=== PATIENT | female | born 1990 | race Hispanic/Latino ===

== ENCOUNTER 2017-11-26 17:12 | Inpatient (IN) | payer OTHER, SELFPAY ==
[2017-11-26] MEDS ORDERED: NA CHLORIDE 0.9% 1,000 ML ONE ×2 (18:21→19:28)
[2017-11-26] MEDS ORDERED: ONDANSETRON 4 MG/2 ML VIAL ONE ×2 (18:21→19:28)
[2017-11-26] MEDS ORDERED: FENTANYL CITR 100 MCG/2 ML ONE (18:21)
[2017-11-26 18:23] LABS: Absolute Lymphocytes (CBC) 0.7 K/uL (0.7-4.9); Absolute Monocytes 0.9 K/uL (0.1-1.3); Absolute Neutrophil 11.5 K/uL (1.8-8.0); Basophils % 0.2 % (0-1.3); Hematocrit 38.7 % (36.0-45.0); Lymphocytes % 5.7 % (15.3-44.8); MCH 29.2 pg (27.0-35.0); MCV 85.8 fL (80-100); MPV 8.5 fL (7.6-11.3); Monocytes % 6.6 % (3.3-12.3); RBC Red Blood Cell Count 4.51 M/uL (3.86-4.86)
[2017-11-26 18:40] LABS: Bilirubin Direct 0.6 mg/dL (0-0.2); Bilirubin Total 1.7 mg/dL (0.2-1.0); Potassium 3.7 mmol/L (3.5-5.1); Protein, Total 8.2 g/dL (6.4-8.2)
[2017-11-26 19:10] LABS: Urine Blood 2+ (NEG); Urine Glucose NEGATIVE (NEG); Urine Protein 2+ (NEG); Urine Specific Gravity 1.015 (1.005-1.030)
[2017-11-26] MEDS ORDERED: CEFTRIAXONE/SWI 1gm 1 GM/10 ML SYR ONE ×2 (19:12→19:48)
[2017-11-26 19:19] LABS: Urine Bacteria 20-50 /HPF (<20); Urine Culture Reflex Order REFLEXED
[2017-11-26] MEDS ORDERED: MORPHINE 4 MG/ML SYR ONE (19:28)
[2017-11-26] MEDS ORDERED: KETOROLAC 30 MG/ML INJ ONE (19:48)
--- NOTE | 2017-11-26 20:31 | EDPHYS ---
Physician Documentation [facility] Name: Jesika Gilman Age: 27 yrs Sex: Female : 1990 Arrival Date: 11/26/2017 Time: 17:14 Bed 13 Private MD: IRENA BROWNLEE ED Physician Srinivasa Nuñez HPI: 11/26 18:00 This 27 yrs old Female presents to ER via Ambulatory with complaints of cp Urinary Retention, Diarrhea, Headache. 18:00 The patient complains of pain in the left mid back and right mid back. The pain does cp not radiate. 18:00 Associated signs and symptoms: Pertinent positives: dysuria, fever, nausea, vomiting, cp abdominal pain, diarrhea. 18:00 Severity of pain: in the emergency department the pain is unchanged despite home cp interventions. [employer]: 17:21 LMP 10/29/2017 la1 Historical: - Allergies: 17:21 No Known Allergies; la1 - Home Meds: 17:40 Effexor Oral 150 mg daily [Active]; rb1 - PMHx: 17:21 Anxiety; Kidney stones; la1 - PSHx: 17:21 ; la1 17:21 Tubal ligation; la1 17:40 Tonsillectomy; rb1 - Immunization history:: Adult Immunizations up to date. - Social history:: Smoking status: Patient/guardian denies using tobacco. - Ebola Screening: : No symptoms or risks identified at this time. ROS: 18:05 Constitutional: Negative for fever, poor PO intake. cp 18:05 Eyes: Negative for injury, pain, redness, and discharge. cp 18:05 ENT: Negative for drainage from ear(s), ear pain, sore throat, difficulty swallowing, difficulty handling secretions. 18:05 Cardiovascular: Negative for chest pain, edema, palpitations. 18:05 Respiratory: Negative for cough, shortness of breath, wheezing. 18:05 Back: Positive for flank pain, bilaterally. 18:05 Skin: Negative for cellulitis, rash. 18:05 Neuro: Negative for altered mental status, headache, weakness. 18:05 Abdomen/GI: Positive for abdominal pain, nausea, diarrhea, Negative for vomiting, cp constipation, black/tarry stool, rectal bleeding. 18:05 All other systems are negative. Exam: 18:10 Constitutional: The patient appears in no acute distress, alert, awake, non-toxic, well cp developed, well nourished, in obvious pain, uncomfortable. 18:10 Head/Face: Normocephalic, atraumatic. cp 18:10 Eyes: Periorbital structures: appear normal, Conjunctiva: normal, no exudate, no injection, Sclera: no appreciated abnormality, Lids and lashes: appear normal, bilaterally. 18:10 ENT: External ear(s): are unremarkable, Ear canal(s): are normal, clear, TM's: dullness, bilaterally, Nose: is normal, Mouth: is normal, Posterior pharynx: is normal, airway is patent, no erythema, no exudate. 18:10 Neck: ROM/movement: is normal, is supple, without pain, no range of motions limitations, no meningismus, no nuchal rigidity. 18:10 Chest/axilla: Inspection: normal, Palpation: is normal, no crepitus, no tenderness. 18:10 Cardiovascular: Rate: tachycardic, Rhythm: regular. 18:10 Respiratory: the patient does not display signs of respiratory distress, Respirations: normal, no use of accessory muscles, no retractions, no splinting, no tachypnea, labored breathing, is not present, Breath sounds: are clear throughout, no decreased breath sounds, no stridor, no wheezing. 18:10 Abdomen/GI: Inspection: abdomen appears normal, Bowel sounds: active, all quadrants, Palpation: soft, in all quadrants, moderate abdominal tenderness, in the right lower quadrant and left lower quadrant, rebound tenderness, is not appreciated, voluntary guarding, is elicited in the right lower quadrant and left lower quadrant. 18:10 Back: ROM is painful, with all movement, CVA tenderness, that is severe, is noted on the right. 18:10 Skin: cellulitis, is not appreciated, no rash present. 18:10 Neuro: Orientation: to person, place \T\ time. Mentation: lucid, able to follow commands, Cerebellar function: is grossly normal, Motor: moves all fours, strength is normal, Sensation: is normal. Vital Signs: 17:21 Pulse 142; Resp 20; Temp 99.5(O); Pulse Ox 100% on R/A; Weight 100.24 kg; Height 5 ft. la1 6 in. (167.64 cm); 17:22 BP 110 / 64; la1 18:20 BP 112 / 66; Pulse 111; Resp 16; Pulse Ox 96% on R/A; rb1 19:27 BP 117 / 65; Pulse 101; Resp 20; Pulse Ox 100% on R/A; tl2 19:49 BP 104 / 52 LA Supine (auto/lg); Pulse 103; Resp 20; Temp 98.9(O); Pulse Ox 100% on cc R/A; Pain 7/10; 20:13 BP 96 / 52; Pulse 102; Resp 18; Pulse Ox 100% on R/A; bp 21:33 BP 112 / 67; Pulse 88; Resp 18; Temp 98.5; Pulse Ox 100% on R/A; tl2 17:21 Body Mass Index 35.67 (100.24 kg, 167.64 cm) la1 MDM: 17:38 Patient medically screened. 19:47 Data reviewed: vital signs, nurses notes, lab test result(s). Physician consultation: ron Savage MD was called at 19:47, was contacted at 19:47, regarding admission, to the medical/surgical unit. patient's condition. 11/26 17:53 Order name: Urine Microscopic Only; Complete Time: 19:28 11/26 19:28 Interpretation: Normal except: UWBC TNTC; URBC 10-20; UBACT 20-50; SQEPI 5-10. 11/26 17:53 Order name: Urine Culture 11/26 17:58 Order name: Basic Metabolic Panel; Complete Time: 19:28 11/26 19:28 Interpretation: Normal except: GLUC 123; GFR 67. 11/26 17:58 Order name: CBC with Diff 11/26 19:28 Interpretation: Normal except: WBC 13.1; LUCY% 87.5; LYM% 5.7; NEUT A 11.5. 11/26 17:58 Order name: Creatinine for Radiology; Complete Time: 19:28 11/26 17:58 Order name: Hepatic Function; Complete Time: 19:28 11/26 17:58 Order name: Lipase; Complete Time: 19:28 11/26 17:58 Order name: Urine Microscopic Only 11/26 17:58 Order name: Blood Culture Adult (2) 11/26 17:58 Order name: Lactate; Complete Time: 19:28 cp 11/26 17:58 Order name: Procalcitonin; Complete Time: 19:28 cp 11/26 18:00 Order name: Urine Dipstick--Ancillary (enter results); Complete Time: 19:28 eb 11/26 18:00 Order name: Urine --Ancillary (enter results); Complete Time: 19:28 eb 11/26 20:43 Order name: CBC Smear Scan EDMS 11/26 17:58 Order name: IV Saline Lock; Complete Time: 18:08 cp 11/26 17:58 Order name: Labs collected and sent; Complete Time: 18:08 cp 11/26 17:58 Order name: Urine Test (obtain specimen); Complete Time: 18:08 cp 11/26 17:58 Order name: Urine Dipstick-Ancillary (obtain specimen); Complete Time: 18:08 cp 11/26 17:58 Order name: CT Abd/Pelvis - W/Contrast cp 11/26 19:29 Order name: PO challenge; Complete Time: 20:13 cp Administered Medications: 17:59 CANCELLED (Physician Discretion): TORadol 30 mg IVP once cp 18:15 Drug: NS 0.9% (30 ml/kg) 30 ml/kg Route: IV; Rate: bolus; Site: left antecubital; rb1 18:15 Drug: Zofran 4 mg Route: IVP; Site: left antecubital; rb1 18:30 Follow up: Response: No adverse reaction rb1 18:15 Drug: fentaNYL (PF) 25 mcg Route: IVP; Site: left antecubital; rb1 18:30 Follow up: Response: No adverse reaction; Pain is decreased rb1 18:54 CANCELLED (changed order): Rocephin - (cefTRIAXone) 2 grams IVPB once over 30 mins; rb1 (mix in 100 mL NS) 19:30 Drug: Rocephin 1 grams Route: IV; Rate: calculated rate; Site: left antecubital; tl2 19:32 Follow up: IV Status: Completed infusion tl2 19:32 Drug: NS 0.9% (30 ml/kg) 30 ml/kg Route: IV; Rate: bolus; Site: left antecubital; tl2 22:01 Follow up: IV Status: Completed infusion; IV Intake: 2000ml tl2 19:32 Drug: morphine 2 mg Route: IVP; Site: left antecubital; tl2 19:45 Follow up: Response: No adverse reaction; Pain is unchanged, physician notified tl2 19:32 Drug: Zofran 4 mg Route: IVP; Site: left antecubital; tl2 20:00 Follow up: Response: No adverse reaction; Nausea is decreased tl2 19:49 Drug: TORadol 30 mg Route: IVP; Site: left antecubital; tl2 20:30 Follow up: Response: No adverse reaction; Pain is decreased tl2 19:49 Drug: Rocephin 1 grams Route: IV; Rate: calculated rate; Site: left antecubital; tl2 19:50 Follow up: IV Status: Completed infusion tl2 Disposition: 11/27 12:23 Co-signature as Attending Physician, Srinivasa Nuñez MD I agree with the assessment and christina plan of care. Disposition: 11/26/17 20:31 Hospitalization ordered by Beck Savage for Observation. Preliminary diagnosis is Pyelonephritis. - Bed requested for Telemetry/MedSurg (observation). - Status is Observation. tl2 - Condition is Stable. - Problem is new. - Symptoms have improved. UTI on Admission? Yes Signatures: Dispatcher [employer] EDMS Kendy Morales RN Srinivasa Copeland MD MD cha Attema, Lee RN RN laSrinivasa Beauchamp PA PA cp Barber, Rebecca, RN RN rb1 Brianna Campuzano RN RN tl2 Corrections: (The following items were deleted from the chart) 11/26 17:59 17:58 TORadol 30 mg IVP once ordered. cp cp 18:54 18:25 Rocephin - (cefTRIAXone) 2 grams IVPB once over 30 mins; (mix in 100 mL NS) rb1 ordered. cp 20:50 20:31 Hospitalization Ordered by Beck Savage MD for Observation. Preliminary nasir diagnosis is Pyelonephritis. Bed requested for Telemetry/MedSurg (observation). Status is Observation. Condition is Stable. Problem is new. Symptoms have improved. UTI on Admission? Yes. cp 22:01 20:50 11/26/2017 20:31 Hospitalization Ordered by Beck Savage MD for Observation. tl2 Preliminary diagnosis is Pyelonephritis. Bed requested for Telemetry/MedSurg (observation). Status is Observation. Condition is Stable. Problem is new. Symptoms have improved. UTI on Admission? Yes. kl 11/27 15:11/26 18:05 Abdomen/GI: Positive for abdominal pain, nausea, Negative for vomiting, cp diarrhea, constipation, anorexia, black/tarry stool, rectal bleeding, cp 11/27 15:11/26 18:05 All other systems are negative, cp cp
--- NOTE | 2017-11-26 20:31 | ER ---
Nurse's Notes [facility] Name: Jesika Gilman Age: 27 yrs Sex: Female : 1990 Arrival Date: 11/26/2017 Time: 17:14 Bed 13 Private MD: IRENA BROWNLEE Diagnosis: Pyelonephritis Presentation: 11/26 17:19 Presenting complaint: Patient states: I have been having urinary frequency for 3 days, la1 then I started having blood in my urine, now I have been having vomiting and diarrhea since yesterday. Pt reports fever as well, +CVA tenderness. Transition of care: patient was not received from another setting of care. Onset of symptoms was November 26, 2017. Risk Assessment: Do you want to hurt yourself or someone else? Patient reports no desire to harm self or others. Initial Sepsis Screen: Does the patient meet any 2 criteria? HR > 90 bpm. Does the patient have a suspected source of infection? Yes: Dysuria/Frequency/Urgency/UTI. Care prior to arrival: None. 17:19 Method Of Arrival: Ambulatory la1 17:19 Acuity: DIDIER 3 la1 ASSIGNMENT OFFICER: 17:21 LMP 10/29/2017 la1 Historical: - Allergies: 17:21 No Known Allergies; la1 - Home Meds: 17:40 Effexor Oral 150 mg daily [Active]; rb1 - PMHx: 17:21 Anxiety; Kidney stones; la1 - PSHx: 17:21 ; la1 17:21 Tubal ligation; la1 17:40 Tonsillectomy; rb1 - Immunization history:: Adult Immunizations up to date. - Social history:: Smoking status: Patient/guardian denies using tobacco. - Ebola Screening: : No symptoms or risks identified at this time. Screenin:35 Abuse screen: Denies threats or abuse. Nutritional screening: No deficits noted. rb1 Tuberculosis screening: No symptoms or risk factors identified. Fall Risk None identified. Assessment: 17:35 General: Appears uncomfortable, Behavior is calm, cooperative. Pain: Complains of pain rb1 in left mid back and right mid back Pain radiates to right upper quadrant and left upper quadrant Pain currently is 10 out of 10 on a pain scale. Pain: Pain began 2-3 days ago. Neuro: Level of Consciousness is awake, alert, obeys commands, Oriented to person, place, time, situation. Cardiovascular: Capillary refill < 3 seconds is brisk in bilateral fingers. Respiratory: Airway is patent Respiratory effort is even, unlabored, Respiratory pattern is regular, symmetrical. GI: Reports diarrhea, nausea, vomiting, since x 1 day. : Reports pain with urination. Derm: Skin is dry, Skin is normal, Skin temperature is warm. Musculoskeletal: Range of motion: intact in all extremities. 18:30 Reassessment: Patient appears in no apparent distress at this time. Patient and/or rb1 family updated on plan of care and expected duration. Pain level reassessed. Patient is alert, oriented x 3, equal unlabored respirations, skin warm/dry/pink. 19:28 General: Appears in no apparent distress. uncomfortable, Behavior is cooperative, tl2 appropriate for age, anxious. Pain: Complains of pain in right mid back and left mid back Pain radiates to left upper quadrant and right upper quadrant Pain currently is 8 out of 10 on a pain scale. Neuro: Level of Consciousness is awake, alert, obeys commands, Oriented to person, place, time, situation. Cardiovascular: Denies chest pain. Respiratory: Airway is patent Respiratory effort is even, unlabored, Respiratory pattern is regular, symmetrical. GI: Reports nausea, vomiting. : Reports inability to void. Derm: Skin is pink, warm \T\ dry. 20:30 Reassessment: Patient appears in no apparent distress at this time. Patient and/or tl2 family updated on plan of care and expected duration. Pain level reassessed. Patient is alert, oriented x 3, equal unlabored respirations, skin warm/dry/pink. 21:33 Reassessment: Patient appears in no apparent distress at this time. Patient and/or tl2 family updated on plan of care and expected duration. Pain level reassessed. Patient is alert, oriented x 3, equal unlabored respirations, skin warm/dry/pink. Patient states feeling better. 21:58 Reassessment: Patient appears in no apparent distress at this time. Pt stable and ready tl2 for transport to floor. Vital Signs: 17:21 Pulse 142; Resp 20; Temp 99.5(O); Pulse Ox 100% on R/A; Weight 100.24 kg; Height 5 ft. la1 6 in. (167.64 cm); 17:22 BP 110 / 64; la1 18:20 BP 112 / 66; Pulse 111; Resp 16; Pulse Ox 96% on R/A; rb1 19:27 BP 117 / 65; Pulse 101; Resp 20; Pulse Ox 100% on R/A; tl2 19:49 BP 104 / 52 LA Supine (auto/lg); Pulse 103; Resp 20; Temp 98.9(O); Pulse Ox 100% on cc R/A; Pain 7/10; 20:13 BP 96 / 52; Pulse 102; Resp 18; Pulse Ox 100% on R/A; bp 21:33 BP 112 / 67; Pulse 88; Resp 18; Temp 98.5; Pulse Ox 100% on R/A; tl2 17:21 Body Mass Index 35.67 (100.24 kg, 167.64 cm) la1 ED Course: 17:14 Patient arrived in ED. sb2 17:15 IRENA BROWNLEE is Private Physician. sb2 17:20 Triage completed. la1 17:22 Arm band placed on right wrist. la1 17:35 Patient has correct armband on for positive identification. Bed in low position. Call rb1 light in reach. Side rails up X 1. Pulse ox on. NIBP on. 17:38 Srinivasa Ibarra PA is PHCP. cp 17:38 Srinivasa Nuñez MD is Attending Physician. cp 17:47 Paola Maxwell, RN is Primary Nurse. rb1 18:08 Inserted saline lock: 18 gauge in left antecubital area, using aseptic technique. Blood la1 collected. 18:56 Note: neg upt per marie small sec. jg6 18:57 Second set of blood cultures drawn by ak, by venipuncture 23G to right ac. dh3 19:00 Report given to LUCA Reed. rb1 19:10 CT Abd/Pelvis - W/Contrast In Process Unspecified. EDMS 20:31 Beck Savage MD is Hospitalizing Provider. cp 21:58 No provider procedures requiring assistance completed. Patient admitted, IV remains in tl2 place. Administered Medications: 17:59 CANCELLED (Physician Discretion): TORadol 30 mg IVP once cp 18:15 Drug: NS 0.9% (30 ml/kg) 30 ml/kg Route: IV; Rate: bolus; Site: left antecubital; rb1 18:15 Drug: Zofran 4 mg Route: IVP; Site: left antecubital; rb1 18:30 Follow up: Response: No adverse reaction rb1 18:15 Drug: fentaNYL (PF) 25 mcg Route: IVP; Site: left antecubital; rb1 18:30 Follow up: Response: No adverse reaction; Pain is decreased rb1 18:54 CANCELLED (changed order): Rocephin - (cefTRIAXone) 2 grams IVPB once over 30 mins; rb1 (mix in 100 mL NS) 19:30 Drug: Rocephin 1 grams Route: IV; Rate: calculated rate; Site: left antecubital; tl2 19:32 Follow up: IV Status: Completed infusion tl2 19:32 Drug: NS 0.9% (30 ml/kg) 30 ml/kg Route: IV; Rate: bolus; Site: left antecubital; tl2 22:01 Follow up: IV Status: Completed infusion; IV Intake: 2000ml tl2 19:32 Drug: morphine 2 mg Route: IVP; Site: left antecubital; tl2 19:45 Follow up: Response: No adverse reaction; Pain is unchanged, physician notified tl2 19:32 Drug: Zofran 4 mg Route: IVP; Site: left antecubital; tl2 20:00 Follow up: Response: No adverse reaction; Nausea is decreased tl2 19:49 Drug: TORadol 30 mg Route: IVP; Site: left antecubital; tl2 20:30 Follow up: Response: No adverse reaction; Pain is decreased tl2 19:49 Drug: Rocephin 1 grams Route: IV; Rate: calculated rate; Site: left antecubital; tl2 19:50 Follow up: IV Status: Completed infusion tl2 Intake: 22:01 IV: 2000ml; Total: 2000ml. tl2 Outcome: 20:31 Decision to Hospitalize by Provider. cp 21:58 Admitted to Med/surg accompanied by tech, via stretcher, room 213, with chart, Report tl2 called to LUCA Morin 21:58 Condition: stable 21:58 Discharge instructions given to patient, Instructed on the need for admit. 22:01 Patient left the ED. tl2 Signatures: Dispatcher [employer] EDMS Essie Palafox Lee RN RN la1 Page, GEOVANNA Bernabe cp, Rebecca, RN RN rb1 Justen, LUCA Reed RN tl2 Naomi Escoto 3 Jerry Henderson RN RN Nini Gomez 2 Alida Velazquez6 Corrections: (The following items were deleted from the chart) 19:28 19:03 BP 117 / 65; tl2 tl2
[2017-11-26 20:43] LABS: Blood Morphology Comment NOT SEEN (NOT SEEN); Platelet Estimate ADEQ; Urine White Blood Cell Casts OK
--- NOTE | 2017-11-26 21:22 | P.HP ---
Certification for Inpatient Patient admitted to: Inpatient With expected LOS: >2 Midnights Practitioner: I am a practitioner with admitting privileges, knowledge of patient current condition, hospital course, and medical plan of care. Services: Services provided to patient in accordance with Admission requirements found in Title 42 Section 412.3 of the Code of Federal Regulations Patient History Date of Service: 11/26/17 Reason for admission: Right-sided pyelonephritis, hydronephrosis History of Present Illness: Ms Gilman is a 27-year-old woman with history of obesity, kidney stones, start about 4 days ago with increasing urinary frequency, painful urination, fever maximum of 102.1 F, then she had nausea, vomiting and diarrhea. Today she came to ER for evaluation. She also has had some blood with urination. At arrival her temp was 99.5 F, lab work remarkable for leukocytosis 13.5 K, preliminary report of CT abdomen and pelvis scan shows right pyelonephritis with moderate hydronephrosis. Allergies No Known Drug Allergies Allergy (Unverified 10/16/14 05:13) Unknown No Known Allergies Allergy (Uncoded 06/10/15 10:09) Unknown Home medications list reviewed: Yes - Past Medical/Surgical History -: Kidney stones -: Obesity Past Surgical History: Reviewed- Non-Contributory - Family History Family History: Reviewed- Non-Contributory - Social History Smoking Status: Former smoker Alcohol use: Yes CD- Drugs: No Place of Residence: Home Review of Systems 10-point ROS is otherwise unremarkable Physical Examination - Physical Exam General: Alert, In no apparent distress HEENT: Atraumatic, PERRLA, Mucous membr. moist/pink, EOMI, Sclerae nonicteric Neck: Supple, 2+ carotid pulse no bruit, No LAD, Without JVD or thyroid abnormality Respiratory: Clear to auscultation bilaterally, Normal air movement Cardiovascular: Regular rate/rhythm, Normal S1 S2 Gastrointestinal: Normal bowel sounds, Tenderness (Right flank pain, right CVA pain for at palpation) Musculoskeletal: No tenderness Integumentary: No rashes Neurological: Normal gait, Normal speech, Normal strength at 5/5 x4 extr, Normal tone, Normal affect Lymphatics: No axilla or inguinal lymphadenopathy - Studies Laboratory Data (last 24 hrs) 11/26/17 18:00: Creatinine 1.00 11/26/17 18:00: WBC 13.1 H, Hgb 13.1, Hct 38.7, Plt Count 279 11/26/17 18:00: Sodium 137, Potassium 3.7, BUN 7, Creatinine 1.00, Glucose 123 H , Total Bilirubin 1.7 H, AST 68 H, ALT 80 H, Alkaline Phosphatase 133 H, Lipase 88 Assessment and Plan - Problems (Diagnosis) (1) Acute pyelonephritis Current Visit: Yes Status: Acute (2) Hydronephrosis Current Visit: Yes Status: Acute Qualifiers: Hydronephrosis type: unspecified Qualified Code(s): N13.30 - Unspecified hydronephrosis (3) Nephrolithiasis Current Visit: Yes Status: Acute (4) Obesity Current Visit: Yes Status: Acute Qualifiers: Obesity type: unspecified obesity type Obesity classification: unspecified obesity classification Serious obesity comorbidity presence: unspecified whether serious comorbidity present Qualified Code(s): E66.9 - Obesity, unspecified - Plan Will admit patient to medical floor. Start IV Levaquin, IV fluids, pain medication and symptomatic medication for nausea vomiting. Will consult Dr. Patel for evaluation of her right moderate hydronephrosis. - Advance Directives Does patient have a Living Will: No Does patient have a Durable POA for Healthcare: No - Code Status/Comfort Care Code Status Assessed: Yes Code Status: Full Code
[2017-11-26 22:26] VITALS: BMI 35.5
[2017-11-26] MEDS: NA CHLORIDE 0.9% 1,000 ML IV SCH (22:37)
[2017-11-26] MEDS: Levofloxacin 750mg IV 750 MG/150 ML BAG IV SCH (22:37)
[2017-11-26] MEDS: ONDANSETRON 4 MG/2 ML VIAL IV PRN (22:38)
[2017-11-27] MEDS: KETOROLAC 30 MG/ML INJ IV PRN ×2 (01:44→08:16)
[2017-11-27] MEDS ORDERED: KCL 20 MEQ/100 mL IVPB 20 MEQ/100 ML BAG IV SCH ×2 (02:00→09:00)
[2017-11-27 05:54] LABS: Absolute Monocytes 0.8 K/uL (0.1-1.3); Absolute Neutrophil 9.7 K/uL (1.8-8.0); Basophils % 0.1 % (0-1.3); Hematocrit 34.5 % (36.0-45.0); Lymphocytes % 8.3 % (15.3-44.8); MCH 29.5 pg (27.0-35.0); MCV 86.1 fL (80-100); MPV 8.9 fL (7.6-11.3); Monocytes % 7.2 % (3.3-12.3)
[2017-11-27 05:59] LABS: Potassium 3.9 mmol/L (3.5-5.1)
[2017-11-27] MEDS: ACETAMINOPHEN 500 MG TAB PO PRN ×2 (06:07→18:03)
[2017-11-27] MEDS: NA CHLORIDE 0.9% 1,000 ML IV SCH ×2 (08:18→18:07)
--- NOTE | 2017-11-27 09:55 | RAD REPORT ---
EXAM DESCRIPTION: CT - Abdomen Pelvis W Contrast - 11/26/2017 11:30 pm CLINICAL HISTORY: Abdominal pain with nausea. COMPARISON: none. TECHNIQUE: Computed axial tomography of the abdomen pelvis was obtained. 100 cc Isovue-300 was admin istered intravenously. Oral contrast was not requested which limits evaluation of bowel.Due to hospit al technical malfunction this report could not be dictated yesterday. Preliminary report was given by me to the emergency room after completion of this exam All CT scans are performed using dose optimization technique as appropriate and may include automated exposure control or mA/KV adjustment according to patient size. FINDINGS: Fatty infiltration liver is present. Spleen, pancreas, and adrenals appear unremarkable. Small bilateral nonobstructing renal calculi are seen. 3 centimeter low-density areas present within the right kidney reaching the periphery There is no evidence of diverticulitis. Small umbilical hernias present IMPRESSION: Mild to moderate right pyelonephritis Small nonobstructing renal calculi.
[2017-11-27] MEDS ORDERED: MORPHINE 2 MG/ML SYR IV PRN (10:38)
--- NOTE | 2017-11-27 10:41 | P.PN ---
Subjective Date of Service: 11/27/17 Chief Complaint: Right-sided pyelonephritis, hydronephrosis Patient is still complaining of pain admitted with a right-sided flank pain for the past 4-5 days diagnosis with the right-sided pyelonephritis Review of Systems General: Weakness Gastrointestinal: Nausea Genitourinary: Dysuria, Frequency, Other (Right-sided flank pain) Physical Examination - Vital Signs Temperature: 97.4 F Blood Pressure: 125/58 Pulse: 126 Respirations: 20 Pulse Ox (%): 98 - Physical Exam General: Alert, Oriented x3, Moderate distress Respiratory: Clear to auscultation bilaterally Gastrointestinal: Normal bowel sounds Urinary: Other (Patient has significant right-sided flank and right back) - Studies Laboratory Data (last 24 hrs) 11/26/17 18:00: Creatinine 1.00 11/26/17 18:00: WBC 13.1 H, Hgb 13.1, Hct 38.7, Plt Count 279 11/26/17 18:00: Sodium 137, Potassium 3.7, BUN 7, Creatinine 1.00, Glucose 123 H , Total Bilirubin 1.7 H, AST 68 H, ALT 80 H, Alkaline Phosphatase 133 H, Lipase 88 Assessment & Plan - Problems (Diagnosis) (1) Acute pyelonephritis Current Visit: Yes Status: Acute Plan: Patient is 27 years of age admitted with pyelonephritis continue with antibiotics cultures pending CT scan shows pyelonephritis of ordered morphine and or Vicodin for pain Plan to discharge in: 48 Hours
[2017-11-27] MEDS: HYDROCODONE/APAP 5/325 MG TAB PO PRN ×2 (11:25→16:03)
--- NOTE | 2017-11-27 16:40 | CON ---
Subjective: This is a 27-year-old female, history of obesity, kidney stones. She is normally passing a kidney stone. She passed a kidney stone a few days ago. She saw small bits and pieces of stone came out and the pain persisted. She developed fevers after that, up to a maximum 102.1. She came to the emergency room where it was 99.5. CT scan shows 2 small stones in the right kidney, some hydroureteronephrosis all the way to the bladder. No stones were seen in the ureter; looked like she just passed a stone consistent with her history, and she got an infection after that, so a urine culture is pending. We keep her on IV antibiotics for now until her culture is back today. If she gets any worse, we may have to put a stent in possible due to edema. Allergies: NO KNOWN DRUG ALLERGIES. Past Medical History: Kidney stones, obesity. Past Surgical History: None. Family History: None. Social History: Former smoker. No alcohol use. No drug use. Resides at home. Review of Systems: A 10-point review of systems otherwise unremarkable. Physical Examination: General: She is lying in bed, resting, normally developed female. No acute distress. Vital Signs: 97.4, heart rate 126, respirations 20, blood pressure 125/58, sats 98%. HEENT: Atraumatic, normocephalic. Neck: Supple. Respiratory: Clear. Cardiovascular: S1, S2. Gastrointestinal: Normal bowel sounds; some flank CVA tenderness home. She also has some pain when she takes a deep breath on that side, which is consistent with pyelonephritis. Musculoskeletal: Nontender. Skin: No rashes. Neurological: Normal gait and speech. Lymphatic: No adenopathy. Laboratory Studies: Shows white count down from 13 0.1 to 11.5, H and H 11.8 and 34.5, platelet count 233. Chemistry: Sodium 140, potassium 3.9, chloride 109, carbon dioxide 23, BUN 7, creatinine 0.8, GFR 86, glucose 96, calcium 8.4, low and magnesium 2.0, good. Urine study showed positive nitrite, positive esterase 3+, pH 7.0. Urine culture is pending. She is on Levaquin right now. Assessment: Right pyelonephritis after passing the stone. Continue IV antibiotics. Await for final urine culture and treat her for about 14 days or so for pyelo. Thank you very much. ARLEEN/CORIE Voice ID: [id number] Report ID: [id number] MENDEZ
[2017-11-27] MEDS: ONDANSETRON 4 MG/2 ML VIAL IV PRN (18:04)
[2017-11-27] MEDS: Levofloxacin 750mg IV 750 MG/150 ML BAG IV SCH (23:18)
[2017-11-28] MEDS: ONDANSETRON 4 MG/2 ML VIAL IV PRN (00:17)
[2017-11-28] MEDS: HYDROCODONE/APAP 5/325 MG TAB PO PRN (00:17)
[2017-11-28 01:16] VITALS: O2SAT 98
[2017-11-28 05:08] LABS: BUN Blood Urea Nitrogen 7 mg/dL (7-18); Bicarbonate 25 mmol/L (21-32); Glucose Level 103 mg/dL (74-106); Magnesium 1.9 mg/dL (1.8-2.4); Sodium Level 139 mmol/L (136-145)
[2017-11-28] MEDS: NA CHLORIDE 0.9% 1,000 ML IV SCH (06:00)
[2017-11-28] MEDS: KETOROLAC 30 MG/ML INJ IV PRN (06:00)
[2017-11-28 12:44] VITALS: BP 118/59; TEMP 97.4
--- NOTE | 2017-11-28 13:32 | P.SSS ---
Patient History Date of Service: 11/28/17 Reason for admission: Right-sided pyelonephritis, hydronephrosis History of Present Illness: Ms Gilman is a 27-year-old woman with history of obesity, kidney stones, start about 4 days ago with increasing urinary frequency, painful urination, fever maximum of 102.1 F, then she had nausea, vomiting and diarrhea. Today she came to ER for evaluation. She also has had some blood with urination. At arrival her temp was 99.5 F, lab work remarkable for leukocytosis 13.5 K, preliminary report of CT abdomen and pelvis scan shows right pyelonephritis with moderate hydronephrosis. Allergies morphine Allergy (Mild, Verified 11/27/17 17:40) Itching Home Medications: Venlafaxine HCl [Effexor XR] 150 mg PO DAILY 11/26/17 Levofloxacin [Levaquin] 500 mg PO DAILY #14 tablet 11/28/17 - Past Medical/Surgical History Has patient received pneumonia vaccine in the past: No Diabetic: No -: Kidney stones -: Obesity -: tonsillectomy -: sectionx2 - Family History Family History: Reviewed- Non-Contributory - Family History Father -: Hypertension, Diabetes Mother -: Hypertension, Diabetes - Social History Smoking Status: Former smoker Alcohol use: Yes CD- Drugs: No Caffeine use: Yes Place of Residence: Home Review of Systems 10-point ROS is otherwise unremarkable Physical Examination - Vital Signs Temperature: 97.4 F Blood Pressure: 118/59 Pulse: 83 Respirations: 16 Pulse Ox (%): 100 - Physical Exam General: Alert, In no apparent distress HEENT: Atraumatic, PERRLA, Mucous membr. moist/pink, EOMI, Sclerae nonicteric Neck: Supple, 2+ carotid pulse no bruit, No LAD, Without JVD or thyroid abnormality Respiratory: Clear to auscultation bilaterally, Normal air movement Cardiovascular: Regular rate/rhythm, Normal S1 S2 Gastrointestinal: Normal bowel sounds, No tenderness Musculoskeletal: No tenderness Integumentary: No rashes Neurological: Normal gait, Normal speech, Normal strength at 5/5 x4 extr, Normal tone, Normal affect Lymphatics: No axilla or inguinal lymphadenopathy - Studies Microbiology Data (last 24 hrs): 11/26/17 17:55 Clean Catch Urine Irwin Count - Final >100,000 CFU/ML. 11/26/17 17:55 Clean Catch Urine - Final Escherichia Coli - Diagnosis (Problem(s)) (1) Acute pyelonephritis Onset Date: 11/28/17 Status: Acute (2) Nephrolithiasis Onset Date: 11/28/17 Status: Acute (3) Obesity Onset Date: 11/28/17 Status: Acute Qualifiers: Obesity type: unspecified obesity type Obesity classification: unspecified obesity classification Serious obesity comorbidity presence: unspecified whether serious comorbidity present Qualified Code(s): E66.9 - Obesity, unspecified Treatment Summary: Overall during the hospital stay patient remained stable Patient was initially admitted to the hospital for fever chills and right flank pain. Was found to have pyelonephritis. Patient was started on IV antibiotics here in the hospital. Neurology was consulted who recommend abdominal CT, abdominal CT was done which was consistent with small nonobstructing calculi along with acute pyelonephritis. Patient was switched over to p.o. Levaquin once the sensitivity for urinalysis were back patient's urine culture was positive for E. coli. Patient had marked improvement in her symptoms and per urology recommendation patient then was discharged home under stable condition. Patient was asked to follow up with urology in about 1-2 days post discharge and was asked to continue taking p.o. Levaquin for total of 14 days. Patient demonstrated understanding and thus was discharged home under stable condition - Disposition Disposition: ROUTINE DISCHARGE Condition: GOOD Patient Discharge Instructions: Please f.u with PCP 1 to 2 weeks post discharge. New medication. Levaquin 500mg Daily for 14 days Diet: Regular Activity: Ad ijeoma
== END 2017-11-28 13:00 | disposition home or self-care (01) | DRG 690 ==
LOC: ER 17:12 → OBSVTOIN 20:29 → ERHOLD 20:29 → 2ND 21:33
PROVIDERS: ADMIT Internal Medicine; ATTEND Internal Medicine
DX: N10 Acute pyelonephritis (principal); B96.20 Unspecified Escherichia coli [E. coli] as the cause of diseases classified elsewhere; N13.2 Hydronephrosis with renal and ureteral calculous obstruction; E66.9 Obesity, unspecified; Z68.35 Body mass index [BMI] 35.0-35.9, adult
CPT/HCPCS: 36415; 74177; 80048; 80076; 81003; 81015; 81025; 83605; 83690; 83735; 84145; 85025; 87040; 87077; 87086; 87088; 87186; 96365; 96366; 96375; 99285; J0696; J2405; J3010; J7030; Q9967

== ENCOUNTER 2018-12-29 13:18 | Emergency (ER) | payer SELFPAY ==
--- NOTE | 2018-12-29 14:28 | EDPHYS ---
Physician Documentation [facility] Name: Jesika Gilman Age: 28 yrs Sex: Female : 1990 Arrival Date: 12/29/2018 Time: 13:19 Bed 20 Private MD: None, None ED Physician Conrado Arteaga HPI: 12/29 13:59 This 28 yrs old Female presents to ER via Ambulatory with complaints of jmm WITHDRAWAL. 14:19 Onset: The symptoms/episode began/occurred gradually, 2 day(s) ago. This is a 28 year jmm old female with a history of anxiety that presents to the ED with complaints of worsening anxiety over the past 2 days. Patient has not taken effexor in 6 days. Symptoms worsened 2 days ago. PCP called in low dose for the patient. . Historical: - Allergies: 13:28 Morphine; sv - PMHx: 13:28 Anxiety; Kidney stones; sv - PSHx: 13:28 ; Tubal ligation; Tonsillectomy; sv - Immunization history:: Adult Immunizations up to date. - Social history:: Smoking status: Patient/guardian denies using tobacco. - Ebola Screening: : Patient negative for fever greater than or equal to 101.5 degrees Fahrenheit, and additional compatible Ebola Virus Disease symptoms Patient denies exposure to infectious person Patient denies travel to an Ebola-affected area in the 21 days before illness onset No symptoms or risks identified at this time. ROS: 14:19 Constitutional: Negative for fever, chills, and weight loss, Cardiovascular: Negative jmm for chest pain, palpitations, and edema, Respiratory: Negative for shortness of breath, cough, wheezing, and pleuritic chest pain. 14:19 Psych: Positive for anxiety. 14:19 All other systems are negative. Exam: 14:19 Head/Face: atraumatic. Eyes: EOMI, no conjunctival erythema appreciated ENT: Moist jmm Mucus Membranes Neck: Trachea midline, Supple Chest/axilla: Normal chest wall appearance and motion. Cardiovascular: Regular rate and rhythm. No edema appreciated Respiratory: Normal respirations, no respiratory distress appreciated Abdomen/GI: Non distended, soft Back: Normal ROM Skin: General appearance color normal MS/ Extremity: Moves all extremities, no obvious deformities appreciated, no edema noted to the lower extremities Neuro: Awake and alert, normal gait Psych: Behavior is normal, Mood is normal, Patient is cooperative and pleasant 14:19 Constitutional: The patient appears alert, awake, anxious. Vital Signs: 13:28 BP 126 / 91; Pulse 113; Resp 22; Temp 99.3; Pulse Ox 99% ; Weight 115.67 kg; Height 5 sv ft. 6 in. (167.64 cm); 14:12 BP 119 / 86; Pulse 90; Resp 18; Pulse Ox 99% on R/A; Pain 0/10; em 13:28 Body Mass Index 41.16 (115.67 kg, 167.64 cm) sv MDM: 13:59 Patient medically screened. [facility] 14:09 Medical screen evaluation completed. EMTALA emergency medical condition absent. [facility] 14:19 Data reviewed: vital signs, nurses notes. ED course: Patient advised to take prescribed jmm Effexor as directed and follow up with PCP. Patient was otherwise given strict return precautions. Patient understood and agrees with the plan of care. . Administered Medications: No medications were administered Disposition: 14:09 Encounter for Medication Refill. [facility] 15:10 Co-signature as Attending Physician, Conrado Arteaga MD I agree with the assessment and kdr plan of care. Disposition: 12/29/18 14:27 Discharged to Home as Medical Screen. Impression: Medication Refill. - Condition is Stable. - Medication Reconciliation Form, Thank You Letter, Antibiotic Education, Prescription Opioid Use form. - Follow up: Private Physician; When: 2 - 3 days; Reason: Recheck today's complaints, Continuance of care, Re-evaluation by your physician. Signatures: Naya Barr RN RN sv Rittger, Kevin, MD MD kdr Mickail, Joel, PA PA [facility] Broderick Tyler LVN WIRE BORDER ASSEMBLER em Corrections: (The following items were deleted from the chart) 14:31 14:27 12/29/2018 14:27 Discharged to Home as Medical Screen. Impression: Medication em Refill. Condition is Stable. Forms are Medication Reconciliation Form, Thank You Letter, Antibiotic Education, Prescription Opioid Use. Follow up: Private Physician; When: 2 - 3 days; Reason: Recheck today's complaints, Continuance of care, Re-evaluation by your physician. [facility]
--- NOTE | 2018-12-29 14:28 | ER ---
Nurse's Notes [facility] Name: Jesika Gilman Age: 28 yrs Sex: Female : 1990 Arrival Date: 12/29/2018 Time: 13:19 Bed 20 Private MD: None, None Diagnosis: Medication Refill Presentation: 12/29 13:27 Presenting complaint: Patient states: Pt has been out of her Effexor for about 6 days, sv was able to get an appt for Jan 05 but they only wrote her for 37.5 mg in the meantime, pt reports normally taking 150 mg. Reports feeling crying and "shocking feeling". Transition of care: patient was not received from another setting of care. Onset of symptoms was December 2018. Risk Assessment: Do you want to hurt yourself or someone else? Patient reports no desire to harm self or others. Initial Sepsis Screen: Does the patient meet any 2 criteria? No. Patient's initial sepsis screen is negative. Does the patient have a suspected source of infection? No. Patient's initial sepsis screen is negative. Care prior to arrival: None. 13:27 Method Of Arrival: Ambulatory sv 13:27 Acuity: DIDIER 3 sv Historical: - Allergies: 13:28 Morphine; sv - PMHx: 13:28 Anxiety; Kidney stones; sv - PSHx: 13:28 ; Tubal ligation; Tonsillectomy; sv - Immunization history:: Adult Immunizations up to date. - Social history:: Smoking status: Patient/guardian denies using tobacco. - Ebola Screening: : Patient negative for fever greater than or equal to 101.5 degrees Fahrenheit, and additional compatible Ebola Virus Disease symptoms Patient denies exposure to infectious person Patient denies travel to an Ebola-affected area in the 21 days before illness onset No symptoms or risks identified at this time. Screenin:02 Abuse screen: Denies threats or abuse. Nutritional screening: No deficits noted. em Tuberculosis screening: No symptoms or risk factors identified. Fall Risk None identified. Assessment: 14:00 General: Appears in no apparent distress. uncomfortable, Behavior is crying. Pain: em Denies pain. Neuro: Level of Consciousness is awake, alert, obeys commands, Oriented to person, place, time, situation, Appropriate for age. Cardiovascular: Capillary refill < 3 seconds Patient's skin is warm and dry. Respiratory: Airway is patent Respiratory effort is even, unlabored, Respiratory pattern is regular, symmetrical. Derm: Skin is intact, is healthy with good turgor, Skin is pink, warm \\T\\ dry. Musculoskeletal: Capillary refill < 3 seconds, Range of motion: intact in all extremities. 14:32 Reassessment: I agree with above assessment. Vital Signs: 13:28 BP 126 / 91; Pulse 113; Resp 22; Temp 99.3; Pulse Ox 99% ; Weight 115.67 kg; Height 5 sv ft. 6 in. (167.64 cm); 14:12 BP 119 / 86; Pulse 90; Resp 18; Pulse Ox 99% on R/A; Pain 0/10; em 13:28 Body Mass Index 41.16 (115.67 kg, 167.64 cm) sv ED Course: 13:19 Patient arrived in ED. ag5 13:21 None, None is Private Physician. ag5 13:28 Triage completed. sv 13:29 Arm band placed on. sv 13:32 Malu Eller, RN is Primary Nurse. iw 13:37 Alan Sullivan PA is PHCP. [facility] 13:37 Conrado Arteaga MD is Attending Physician. [facility] 14:02 Patient has correct armband on for positive identification. Bed in low position. Call em light in reach. Pulse ox on. NIBP on. 14:30 No provider procedures requiring assistance completed. Patient did not have IV access em during this emergency room visit. Administered Medications: No medications were administered Outcome: 14:27 Discharge ordered by . [facility] 14:30 Following a medical screening exam, the patient was provided information regarding em alternative care sites and resources available per registration personnel. 14:30 Medical screen evaluation completed per provider. Patient declined treatment. em 14:31 Condition: good em 14:31 Patient left the ED. em Signatures: Lavern Blancas, RN LUCA Naya Barr RN RN sv Mickail, Joel, PA PA Broderick Boo, LEAD BI DEVELOPER LEAD BI DEVELOPER em Malu Eller, RN LUCA Randal Donaldson ag5 Corrections: (The following items were deleted from the chart) 14:31 14:30 Following a medical screening exam, the patient was provided information em regarding alternative care sites and resources available per registration personnel. em
[2018-12-29 14:47] VITALS: BP 119/86; O2SAT 99
== END 2018-12-29 14:31 | disposition home or self-care (01) ==
LOC: ER 13:18
DX: Z76.0 Encounter for issue of repeat prescription (principal); Z88.5 Allergy status to narcotic agent
CPT/HCPCS: 99282

== ENCOUNTER 2024-10-20 10:44 | Emergency (ER) | payer SELFPAY ==
--- OUTSIDE RECORDS SUMMARY | 2024-10-20 10:49 | XMS REPORT | Continuity of Care Document ---
Author Name Unknown Address [address] [facility] [address] [place] [address] [facility] Address [address] [facility] [address] [place] [address] Care Team Providers Care Slabber Name Role Phone Sharla Prakash MD Primary Care Physician [phone] KEL BAILEY Attending Clinician Unavai JOSÉ Rothman Attending Clinician Unavailab le Doctor Unassigned, [place] Attending Clinician U Domenic Ghosh DO Attending Clinician [phone] Kel Bailey MD Attending Clinician + [phone] Rose Heaton Attending Clinician [phone] Linden Ordaz DO Attending Clinician [phone] Caesar TALLEY, Arsenio Attending Clinician [phone] Sindi Talley RN Attending Clinician [phone] Doctor Unassigned, [place] Attending Clinician U ajayidalia Sheikh PAC, Tere S Attending Clinician ANDREA GORMAN III Attending Clinician KEL Vazquez Admitting Clinician JOSÉ Pemberton Admitting Clinician Unavail le KNOW, DOES_NOT Admitting Clinician Unavailable Caesar TALLEY, Faisaljessica Admitting Clinician [phone] ANDREA GORMAN III Admitting Clinician Mart kaye Payers Payer Name Policy Type Policy Number Effective Date Expirati on Date Source MEDICAID PENDING PENDING 2019 00:00:00 Problems Condition Name Condition Details Condition Category Status Onset Date Resolution Date Last Treatment Date Treating Clinician Comments Source Urinary tract infection, site not specified Urinary tract infection, site not specified Disease Active 12-02 00:00: 00 [facility] Kidney stone Kidney stone Disease Active 11-15 00:00: 00 Overview: Added automatic ally from request for surgery [id number] [facility] Kidney stones Kidney stones Disease Active 11-13 00:00: 00 [facility] delivery delivered delivery delivered Disease Active 2016-03 00:00: 00 [facility] delivery delivered delivery delivered Disease Active 2016-03 00:00: 00 [facility] 39 weeks gestation of 39 weeks gestation of Disease Active 2016-03 00:00: 00 [facility] Oligohydra mnios in third trimester Oligohydra mnios in third trimester Disease Active 2016-03 00:00: 00 [facility] Morbid obesity with body mass index of 40.0-49.9 Morbid obesity with body mass index of 40.0-49.9 Disease Active 2016-03 00:00: 00 [facility] heart rate decelerati ons affecting management of mother heart rate decelerati ons affecting management of mother Disease Active 2016-03 00:00: 00 [facility] Morbid obesity with body mass index of 40.0-49.9 Morbid obesity with body mass index of 40.0-49.9 Disease Active 2016-03 00:00: 00 [facility] uterine contractio ns in third trimester, antepartum uterine contractio ns in third trimester, antepartum Disease Active 2016-03 0 00:00: 00 [facility] Obesity (BMI 30-39.9) Obesity (BMI 30-39.9) Disease Active 09-29 00:00: 00 [facility] Renal calculi Renal calculi Disease Active 09-29 00:00: 00 [facility] Seizure disorder in , third trimester Seizure disorder in , third trimester Disease Active 09-08 00:00: 00 [facility] Hypertensi on in , pre-existi ng, antepartum , second trimester Hypertensi on in , pre-existi ng, antepartum , second trimester Disease Active 09-08 00:00: 00 [facility] Depression affecting in third trimester, antepartum Depression affecting in third trimester, antepartum Disease Active 09-08 00:00: 00 [facility] Headache in , antepartum , third trimester Headache in , antepartum , third trimester Disease Active 09-08 00:00: 00 [facility] Family history of Down syndrome Family history of Down syndrome Disease Active 09-08 00:00: 00 [facility] Chlamydia infection affecting Chlamydia infection affecting Disease Active 09-08 00:00: 00 [facility] Family history of Down syndrome Family history of Down syndrome Disease Active 09-08 00:00: 00 [facility] Generalize d anxiety disorder Generalize d anxiety disorder Disease Active 05-12 00:00: 00 Overview: Denies suicidal ideations [facility] with nephrolith iasis in second trimester with nephrolith iasis in second trimester Disease Resolve d 09-30 00:00: 00 2017-01-03 00:00:00 2017-01-03 08:58:07 [facility] 36 weeks gestation of 36 weeks gestation of Disease Resolve d 09-29 00:00: 00 2017-01-03 00:00:00 2017-01-03 08:57:24 [facility] Leukocytos is Leukocytos is Disease Resolve d 09-29 00:00: 00 2017-01-03 00:00:00 2017-01-03 08:57:53 [facility] HRP (high risk ) , third trimester HRP (high risk ) , third trimester Disease Resolve d 09-08 00:00: 2017-01-03 00:00:00 2017-01-03 08:57:46 [facility] Obesity complicati ng , second trimester Obesity complicati ng , second trimester Disease Resolve d 09-08 00:00: 00 2017-01-03 00:00:00 2017-01-03 08:58:00 [facility] Anxiety during in second trimester, antepartum Anxiety during in second trimester, antepartum Disease Resolve d 09-08 00:00: 00 2017-01-03 00:00:00 2017-01-03 08:57:29 [facility] Encounter for routine gynecologi ben examinatio n Encounter for routine gynecologi ben examinatio n Disease Resolve d 05-12 00:00: 2017-01-03 00:00:00 2021-09-20 00:23:18 [facility] Pain pelvic Pain pelvic Disease Resolve d 05-12 00:00: 00 2017-01-03 00:00:00 2017-01-03 08:57:16 [facility] Dyspareuni a Dyspareuni a Disease Resolve d 05-12 00:00: 00 2017-01-03 00:00:00 2017-01-03 08:57:14 [facility] Dysmenorrh ea Dysmenorrh ea Disease Resolve d 05-12 00:00: 00 2017-01-03 00:00:00 2017-01-03 08:57:14 [facility] Pyelonephr itis affecting Pyelonephr itis affecting Disease Resolve d 09-30 00:00: 00 2016-09-30 00:00:00 2016-09-30 18:51:00 [facility] Threatened premature labor, antepartum (644.03) Threatened premature labor, antepartum (644.03) Disease Resolve d 2009-03 0-20 00:00: 00 2012-05-12 00:00:00 2012-05-12 12:02:43 [facility] Allergies, Adverse Reactions, Alerts Allergy Name Allergy Type Status Severity Reaction(s) Onset Date Inactive Date Treating Clinician Comments Source MORPHINE DRUG INGREDI Active ITCHING 11-13 00:00: 00 [facility] Morphine Propensi ty to adverse reaction s Active Itching 11-13 00:00: 00 [facility] No Known Allergie s DA Active U 11-06 00:00: 00 [facility] NO KNOWN ALLERGIE S Drug Class Active [facility] Social History Social Habit Start Date Stop Date Quantity Comments Source [facility] smoked current (pack per day) - Reported 2019-12-05 00:00:00 2019-12-05 00:00:00 [facility] Alcohol intake 2019-12-05 00:00:00 2019-12-05 00:00:00 Current non-drinker of alcohol (finding) [facility] History SDOH Financial 2019-12-04 00:00:00 2019-12-04 00:00:[address] [facility] History SDOH Food Worry 2019-12-04 00:00:00 2019-12-04 00:00:[address] [facility] History SDOH Food Scarcity 2019-12-04 00:00:00 2019-12-04 00:00:[address] [facility] History SDOH Transport Med 2019-12-04 00:00:00 2019-12-04 00:00:[address] [facility] History SDOH Transport Non-Med 2019-12-04 00:00:00 2019-12-04 00:00:[address] [facility] Exposure to SARS-CoV-2 (event) 2019-11-03 00:00:00 2019-12-03 18:34:[address] [facility] Tobacco Comment 2019-12-03 00:00:00 2019-12-03 00:00:[address] [facility] History of Social function 2019-11-23 00:00:00 2019-11-23 00:00:00 [facility] Alcoholic beverage intake 2017-01-03 00:00:00 2017-01-03 00:00:00 Current non-drinker of alcohol (finding) [facility] Tobacco use and exposure 2012-05-12 00:00:00 2012-05-12 00:00:00 Smokeless tobacco non-user [facility] Alcohol Comment 2012-05-12 00:00:00 2012-05-12 00:00:00 gave up 03/08/2012 [facility] History of tobacco use 2012-04-07 00:00:[address] [facility] Sex assigned at 1990 00:00:00 1990 00:00:00 [facility] Smoking Status Start Date Stop Date Source Ex-smoker 2012-05-12 00:00:00 2012-05-12 00:00:00 [facility] Medications Ordered Medication Name Filled Medication Name Start Date Stop Date Current Medication? Ordering Clinician Indication Dosage Frequency Signature (SIG) Comments Components Source clonazePAM 2 mg tablet 12-04 17:48: 27 12-04 00:00 :00 No 2mg Take 2 mg by mouth 3 (three) times daily. [facility] acetaminoph en (TYLENOL) tablet 650 mg 12-04 06:34: 55 Yes 650mg 650 mg, Oral, Q6HPRN, Starting Tue12/05/19 at 0134, Until Discontinu ed, Routine, Pain (scale 1-3), Temp > 38.5 C [facility] FENTanyl PF (SUBLIMAZE (PF)) injection 50 mcg 12-04 03:43: 46 12-05 03:42 :46 No 50ug 50 mcg, Slow IV Push, Q3HPRN, Starting Tu12/04/19 at 2243, Until Tue12/05/19 at 2242, Routine, Pain (scale 7-10) [facility] cefTRIAXone (ROCEPHIN) 1,000 mg in NaCl 0.9% (NS) 50 mL MINI-BAG 12-04 01:00: 00 Yes 1000mg 1,000 mg, IV Piggyback, Q24H ABX, First dose (after last reorder) on Tue12/04/19 at 2000, Until Discontinu ed, 50 mL
Reas on for Anti-Infec tive: Documented Infection< br>Documen shandra Infection Site: Urine
D uration of Therapy: 7 days [facility] amoxicillin -clavulanat e (AUGMENTIN) 875-125 mg per tablet 12-04 00:00: 00 Yes [id number] 1{tbl} Take 1 tablet by mouth 2 (two) times daily. [facility] acetaminoph en 325 mg tablet 12-04 00:00: 00 12-05 04:59 :00 No [id number] 650mg Take 2 tablets by mouth every 6 (six) hours as needed for Pain (scale 1-3) or Temp > 38.5 C. [facility] FENTanyl PF (SUBLIMAZE (PF)) injection 25 mcg 12-03 19:15: 25 12-03 20:08 :26 No 25ug 25 mcg, Slow IV Push, Q5MIN PRN, 4 doses, Starting Tue12/04/19 at 1415, Until Tue12/04/19 at 1508, Routine, Pain (scale 4-6), PACU [facility] pantoprazol e (PROTONIX) EC tablet 40 mg 12-03 14:00: 00 Yes 40mg 40 mg, Oral, DAILY, First dose on Tue12/04/19 at 0900, Until Discontinu ed, Routine [facility] docusate (COLACE) capsule 100 mg 12-03 14:00: 00 Yes 100mg 100 mg, Oral, DAILY, First dose on Tue12/04/19 at 0900, Until Discontinu ed, Routine [facility] venlafaxine XR (EFFEXOR XR) 24 hr capsule 150 mg 12-03 13:00: 00 Yes 150mg 150 mg, Oral, QAM WITH BREAKFAST, First dose on Tue12/04/19 at 0800, Until Discontinu ed, Routine [facility] clonazePAM (KLONOPIN) tablet 0.5 mg 12-03 03:13: 04 Yes .5mg 0.5 mg, Oral, Q8HPRN, Starting Tue12/03/19 at 2213, Until Discontinu ed, Routine, Anxiety [facility] NaCl 0.9% (NS) IV infusion 1,000 mL 12-03 02:15: 00 Yes 1000mL at 50 mL/hr, IV Infusion, CONTINUOUS , Starting Tue12/03/19 at 2115, Until Discontinu ed, Routine [facility] cefTRIAXone (ROCEPHIN) 1,000 mg in NaCl 0.9% (NS) 50 mL MINI-BAG 12-03 01:45: 00 12-03 02:15 :00 No 1000mg 1,000 mg, IV Piggyback, ONCE, 1 dose, Tue12/03/19 at 2045, 50 mL
Reas on for Anti-Infec tive: Documented Infection< br>Documen shandra Infection Site: Urine
D uration of Therapy: Other (see Comments) [facility] ondansetron (ZOFRAN (PF)) injection 4 mg 12-03 01:09: 08 Yes 4mg 4 mg, Slow IV Push, Q6HPRN, Starting Tue12/03/19 at 2008, Until Discontinu ed, Routine, Nausea and Vomiting (N/V) [facility] FENTanyl PF (SUBLIMAZE (PF)) injection 50 mcg 12-03 01:06: 33 12-04 01:05 :33 No 50ug 50 mcg, Slow IV Push, Q3HPRN, Starting Tue12/03/19 at 2005, Until Tue12/04/19 at 2005, Routine, Pain (scale 7-10) [facility] ketorolac (TORADOL) injection 15 mg 12-03 01:00: 00 12-03 00:31 :00 No 15mg 15 mg, Intramuscu lar, ONCE, 1 dose, Tue12/03/19 at 2000, PEGGY
Fa culty member approving Restricted medication : LINDEN ORDAZ [facility] HYDROmorpho ne (DILAUDID) injection 1 mg 12-03 01:00: 00 12-03 00:31 :00 No 1mg 1 mg, Slow IV Push, ONCE, 1 dose, Tue12/03/19 at 2000, PEGGY
Us e approved by (Faculty): CLC PROVIDER [facility] ondansetron (ZOFRAN (PF)) injection 4 mg 12-03 01:00: 00 12-03 00:31 :00 No 4mg 4 mg, Slow IV Push, ONCE, 1 dose, Tue12/03/19 at 2000, PEGGY [facility] tamsulosin 0.4 mg 24 hr capsule 12-03 00:00: 00 Yes [id number] .4mg Take 1 capsule by mouth daily. [facility] NaCl 0.9% (NS) bolus infusion 1,000 mL 12-03 00:00: 00 12-03 00:31 :00 No 1000mL at 999 mL/hr, 1,000 mL, IV Infusion, ONCE, 1 dose, Tue12/03/19 at 1900, PEGGY [facility] ketorolac (TORADOL) injection 30 mg 11-15 16:30: 00 11-15 15:43 :00 No 30mg 30 mg, Slow IV Push, ONCE, 1 dose, Tue11/16/19 at 1130, Routine
catering staff member approving Restricted medication : BURT SHETTY [facility] FENTanyl PF (SUBLIMAZE (PF)) injection 50 mcg 11-15 05:30: 00 11-15 05:38 :00 No 50ug 50 mcg, Slow IV Push, ONCE, 1 dose, Tue11/16/19 at 0030, Routine [facility] ketorolac (TORADOL) injection 15 mg 11-15 01:57: 57 11-15 05:02 :52 No 15mg 15 mg, Slow IV Push, Q6HPRN, 4 doses, Starting Nicole 11/15/19 at 2057, Until Tue11/16/19 at 0002, Routine, Alternate with [place] for pain scale 4-6
Fac ulty member approving Restricted medication : HOSREDCLC [facility] HYDROcodone -acetaminop hen (NORCO 5) 5-325 mg tablet 1 tablet 11-15 00:27: 26 Yes 1{tbl} 1 tablet, Oral, Q6HPRN, Starting Nicole 11/15/19 at 1927, Until Discontinu ed, Routine, Pain (scale 4-6) [facility] traMADoL (ULTRAM) 50 mg tablet 11-15 00:00: 00 Yes [id number] 50mg Take 1 tablet by mouth every 8 (eight) hours as needed for Pain (scale 4-6). Indication s: acute pain [facility] tamsulosin 0.4 mg 24 hr capsule 11-15 00:00: 00 12-04 00:00 :00 No [id number] .4mg Take 1 capsule by mouth at bedtime. [facility] ciprofloxac in HCl 500 mg tablet 11-15 00:00: 00 12-04 00:00 :00 No [id number] 500mg Take 1 tablet by mouth every 12 (twelve) hours. [facility] cefTRIAXone (ROCEPHIN) 1,000 mg in NaCl 0.9% (NS) 50 mL MINI-BAG 11-14 15:30: 00 Yes 1000mg 1,000 mg, IV Piggyback, Q24H ABX, First dose on Tue11/15/19 at 1030, Until Discontinu ed, 50 mL
Reas on for Anti-Infec tive: Empiric Therapy for Suspected Infection< br>Empiric Therapy Site: Urine
D uration of therapy: 72 hours [facility] enoxaparin (LOVENOX) injection 40 mg 11-14 14:00: 00 Yes 40mg 40 mg, Subcutaneo us, DAILY, First dose on Nicole 11/15/19 at 0900, Until Discontinu ed, Routine [facility] venlafaxine XR (EFFEXOR XR) 24 hr capsule 150 mg 11-14 13:00: 00 Yes 150mg 150 mg, Oral, QAM WITH BREAKFAST, First dose on Tue11/15/19 at 0800, Until Discontinu ed, Routine [facility] NaCl 0.9% (NS) IV infusion 1,000 mL 11-14 03:00: 00 Yes 1000mL at 100 mL/hr, IV Infusion, CONTINUOUS , Starting Tue11/14/19 at 2200, Until Discontinu ed, Routine [facility] tamsulosin (FLOMAX) capsule 0.4 mg 11-14 02:00: 00 Yes .4mg 0.4 mg, Oral, QHS, First dose on Tue11/14/19 at 2100, Until Discontinu ed, Routine [facility] FENTanyl PF (SUBLIMAZE (PF)) injection 50 mcg 11-14 01:38: 16 11-14 20:46 :36 No 50ug 50 mcg, Slow IV Push, Q3HPRN, Starting Tue11/14/19 at 2037, Until Tue11/15/19 at 1546, Routine, Pain (scale 7-10) [facility] HYDROcodone -acetaminop hen (NORCO 5) 5-325 mg tablet 1 tablet 11-14 01:38: 12 11-14 20:46 :36 No 1{tbl} 1 tablet, Oral, Q6HPRN, Starting Tue11/14/19 at 2037, Until Nicole 11/15/19 at 1546, Routine, Pain (scale 4-6) [facility] acetaminoph en (TYLENOL) tablet 650 mg 11-14 01:38: 10 Yes 650mg 650 mg, Oral, Q6HPRN, Starting Tue11/14/19 at 203, Until Discontinu ed, Routine, Pain (scale 1-3) [facility] ondansetron (ZOFRAN-ODT ) disintegrat ing tablet 4 mg 11-14 01:36: 49 11-14 20:46 :12 No 4mg 4 mg, Oral, Q8HPRN, Starting Tue11/14/19 at 2035, Until Nicole 11/15/19 at 1546, Routine, Nausea and Vomiting (N/V) [facility] venlafaxine XR (EFFEXOR XR) 24 hr capsule 150 mg 09-12 14:00: 00 Yes 150mg 150 mg, Oral, DAILY, First dose on Tue09/13/19 at 0900, Until Discontinu ed, Routine [facility] LORazepam (ATIVAN) tablet 1 mg 09-12 09:15: 00 09-12 08:32 :00 No 1mg 1 mg, Oral, ONCE, 1 dose, [facility] 09/13/19 at 0415, PEGGY [facility] venlafaxine XR 150 mg 24 hr capsule 09-12 00:00: 00 12-04 00:00 :00 No [id number] 150mg Take 1 capsule by mouth daily with breakfast. [facility] ondansetron (ZOFRAN ODT) 4 mg disintegrat ing tablet 2018-03 00:00: 00 11-22 00:00 :00 No [id number] 4mg Take 1 tablet by mouth every 8 (eight) hours as needed for Nausea and Vomiting (N/V). [facility] traMADol (ULTRAM) 50 mg tablet 2018-03 00:00: 00 11-15 00:00 :00 No [id number] 50mg Take 1 tablet by mouth every 8 (eight) hours as needed for Pain (scale 4-6). [facility] tamsulosin 0.4 mg 24 hr capsule 2018-03 00:00: 00 11-15 00:00 :00 No [id number] .4mg Take 1 capsule by mouth at bedtime. [facility] venlafaxine XR 150 mg 24 hr capsule 2016-03 00:00: 00 Yes [id number] 150mg Take 1 capsule by mouth daily with breakfast. [facility] Immunizations Ordered Immunization Name Filled Immunization Name Date Status Comments Source MMR 2017-01-08 00:00:[address] [facility] Influenza Virus Vaccine Quad ID 18-64 YRS 2017-01-08 00:00:[address] [facility] MMR 2017-01-08 00:00:[address] [facility] Influenza Virus Vaccine Quad ID 18-64 YRS 2017-01-08 00:00:[address] [facility] MMR 2017-01-08 00:00:[address] [facility] Influenza Virus Vaccine Quad ID 18-64 YRS 2017-01-08 00:00:[address] [facility] MMR 2017-01-08 00:00:[address] [facility] Influenza Virus Vaccine Quad ID 18-64 YRS 2017-01-08 00:00:[address] [facility] MMR 2017-01-08 00:00:[address] [facility] Influenza Virus Vaccine Quad ID 18-64 YRS 2017-01-08 00:00:[address] [facility] MMR 2017-01-08 00:00:[address] [facility] Influenza Virus Vaccine Quad ID 18-64 YRS 2017-01-08 00:00:[address] [facility] MMR 2017-01-08 00:00:[address] [facility] Influenza Virus Vaccine Quad ID 18-64 YRS 2017-01-08 00:00:[address] [facility] MMR 2017-01-08 00:00:[address] [facility] Influenza Virus Vaccine Quad ID 18-64 YRS 2017-01-08 00:00:[address] [facility] MMR 2017-01-08 00:00:[address] [facility] Influenza Virus Vaccine Quad ID 18-64 YRS 2017-01-08 00:00:[address] [facility] MMR 2017-01-08 00:00:[address] [facility] Influenza Virus Vaccine Quad ID 18-64 YRS 2017-01-08 00:00:[address] [facility] MMR 2017-01-08 00:00:[address] [facility] Influenza Virus Vaccine Quad ID 18-64 YRS 2017-01-08 00:00:[address] [facility] MMR 2017-01-08 00:00:[address] [facility] Influenza Virus Vaccine Quad ID 18-64 YRS 2017-01-08 00:00:[address] [facility] MMR 2017-01-08 00:00:[address] [facility] Influenza Virus Vaccine Quad ID 18-64 YRS 2017-01-08 00:00:[address] [facility] MMR 2017-01-08 00:00:[address] [facility] Influenza Virus Vaccine Quad ID 18-64 YRS 2017-01-08 00:00:[address] [facility] MMR 2017-01-08 00:00:[address] [facility] Influenza Virus Vaccine Quad ID 18-64 YRS 2017-01-08 00:00:[address] [facility] MMR 2017-01-08 00:00:[address] [facility] Influenza Virus Vaccine Quad ID 18-64 YRS 2017-01-08 00:00:[address] [facility] MMR 2017-01-08 00:00:[address] [facility] Influenza Virus Vaccine Quad ID 18-64 YRS 2017-01-08 00:00:[address] [facility] MMR 2017-01-08 00:00:[address] [facility] Influenza Virus Vaccine Quad ID 18-64 YRS 2017-01-08 00:00:[address] [facility] TDAP 2016-10-28 00:00:[address] [facility] TDAP 2016-10-28 00:00:[address] [facility] TDAP 2016-10-28 00:00:[address] [facility] TDAP 2016-10-28 00:00:[address] [facility] TDAP 2016-10-28 00:00:[address] [facility] TDAP 2016-10-28 00:00:[address] [facility] TDAP 2016-10-28 00:00:[address] [facility] TDAP 2016-10-28 00:00:[address] [facility] TDAP 2016-10-28 00:00:[address] [facility] TDAP 2016-10-28 00:00:[address] [facility] TDAP 2016-10-28 00:00:[address] [facility] TDAP 2016-10-28 00:00:[address] [facility] TDAP 2016-10-28 00:00:[address] [facility] TDAP 2016-10-28 00:00:[address] [facility] TDAP 2016-10-28 00:00:[address] [facility] TDAP 2016-10-28 00:00:[address] [facility] TDAP 2016-10-28 00:00:[address] [facility] TDAP 2016-10-28 00:00:[address] [facility] TDAP 2016-10-28 00:00:[address] [facility] Td 2011-04-08 00:00:[address] [facility] Td 2011-04-08 00:00:[address] [facility] Td 2011-04-08 00:00:[address] [facility] Td 2011-04-08 00:00:[address] [facility] Td 2011-04-08 00:00:[address] [facility] Td 2011-04-08 00:00:[address] [facility] Td 2011-04-08 00:00:[address] [facility] Td 2011-04-08 00:00:[address] [facility] Td 2011-04-08 00:00:[address] [facility] Td 2011-04-08 00:00:[address] [facility] Td 2011-04-08 00:00:[address] [facility] Td 2011-04-08 00:00:[address] [facility] Td 2011-04-08 00:00:[address] [facility] Td 2011-04-08 00:00:[address] [facility] Td 2011-04-08 00:00:[address] [facility] Td 2011-04-08 00:00:[address] [facility] TD, NOS 2011-04-08 00:00:00 Completed Td 2011-04-08 00:00:[address] [facility] Td 2011-04-08 00:00:[address] [facility] Vital Signs Vital Name Observation Time Observation Value Comments S ource Systolic blood pressure 2019-12-05 19:37:00 110 mm[Hg] [place] [facility] Diastolic blood pressure 2019-12-05 19:37:00 82 mm[Hg] [facility] Heart rate 2019-12-05 19:37:00 79 /min Kathye [facility] Body temperature 2019-12-05 19:37:[address] [facility] Respiratory rate 2019-12-05 19:37:00 18 /min [facility] Oxygen saturation in Arterial blood by Pulse oximetry 2019-12-05 19:37:00 98 /min [facility] Body weight 2019-12-04 12:41:00 91.6 [facility] BMI 2019-12-04 12:41:00 32.61 kg/m2 [facility] Body height 2019-12-04 02:47:00 167.6 cm [facility] Systolic blood pressure 2019-11-23 14:42:00 119 mm[Hg] [facility] Diastolic blood pressure 2019-11-23 14:42:00 76 mm[Hg] [facility] Heart rate 2019-11-23 14:42:00 81 /min [facility] Body temperature 2019-11-23 14:42:[address] [facility] Respiratory rate 2019-11-23 14:42:00 16 /min [facility] Body height 2019-11-23 14:42:00 167.6 cm [facility] Body weight 2019-11-23 14:42:00 92.851 kg [facility] BMI 2019-11-23 14:42:00 33.04 kg/m2 [facility] Oxygen saturation in Arterial blood by Pulse oximetry 2019-11-23 14:42:00 98 /min [facility] Systolic blood pressure 2019-11-23 14:42:00 119 mm[Hg] [facility] Diastolic blood pressure 2019-11-23 14:42:00 76 mm[Hg] [facility] Heart rate 2019-11-23 14:42:00 81 /[facility] temperature 2019-11-23 14:42:[address] [facility] Respiratory rate 2019-11-23 14:42:00 16 /min [facility] Body height 2019-11-23 14:42:00 167.6 cm [facility] Body weight 2019-11-23 14:42:00 92.851 kg [facility] BMI 2019-11-23 14:42:00 33.04 kg/m2 [facility] Oxygen saturation in Arterial blood by Pulse oximetry 2019-11-23 14:42:00 98 /min [facility] Systolic blood pressure 2019-11-16 20:00:00 121 mm[Hg] [facility] Diastolic blood pressure 2019-11-16 20:00:00 62 mm[Hg] [facility] Heart rate 2019-11-16 20:00:00 66 /min Unive [facility] Body temperature 2019-11-16 20:00:[address] [facility] Respiratory rate 2019-11-16 20:00:00 18 /min [facility] Oxygen saturation in Arterial blood by Pulse oximetry 2019-11-16 20:00:00 99 /min [facility] Body weight 2019-11-15 15:07:00 95.3 kg [facility] BMI 2019-11-15 15:07:00 33.91 kg/m2 [facility] Body height 2019-11-14 23:16:00 167.6 cm [facility] Systolic blood pressure 2019-09-13 08:00:00 104 mm[Hg] [facility] Diastolic blood pressure 2019-09-13 08:00:00 63 mm[Hg] [facility] Heart rate 2019-09-13 08:00:00 95 /min Unive [facility] Respiratory rate 2019-09-13 08:00:00 19 /min [facility] Oxygen saturation in Arterial blood by Pulse oximetry 2019-09-13 08:00:00 99 /min [facility] Body weight 2019-09-13 07:49:29 98.431 kg [facility] BMI 2019-09-13 07:49:29 35.04 kg/m2 [facility] Body temperature 2019-09-13 07:40:[address] [facility] Procedures Procedure Date / Time Performed Performing Clinician Source XR KUB 2019-12-05 10:22:[address] [facility] FL TIME OR (NON-REPORTABLE) 2019-12-04 18:59:[address] [facility] URETEROSCOPIC STONE MANIPULATION 2019-12-04 17:50:[address] [facility] US RETROPERITONEAL COMPLETE 2019-12-04 01:27:[address] [facility] COVID-19 (ID NOW RAPID TESTING) 2019-12-04 00:44:00 [facility] POCT TEST 2019-12-04 00:38:[address] [facility] HEPATIC FUNCTION PANEL (26485) (ALB,T.PRO,BILI T,BU/BC,ALT,AST,ALK PHOS) 2019-12-04 00:00:00 [facility] BASIC METABOLIC PANEL (NA, K, CL, CO2, GLUCOSE, BUN, CREATININE, CA) 2019-12-04 00:00:00 [facility] CBC WITH DIFF 2019-12-04 00:00:00 Linden Ordaz [facility] URINALYSIS 2019-12-04 00:00:00 Linden Ordza [facility] URINE CULTURE 2019-12-04 00:00:00 Linden Ordaz [facility] NO SHOW OR MISSED APPOINTMENT POLICY ACKNOWLEDGEMENT 2019-11-23 14:26:19 Doctor Unassigned, [place] [facility] EXTERNAL PROVIDER RECORDS 2019-11-20 05:01:00 Do ctor Unassigned, [place] [facility] FL TIME OR (NON-REPORTABLE) 2019-11-15 21:40:[address] [facility] STENT PLACEMENT 2019-11-15 20:42:[address] [facility] TEST, URINE 2019-11-15 19:01:[address] [facility] URINE CULTURE 2019-11-15 16:02:[address] [facility] BASIC METABOLIC PANEL (NA, K, CL, CO2, GLUCOSE, BUN, CREATININE, CA) 2019-11-15 15:56:[address] [facility] CBC WITH DIFF 2019-11-15 15:56:00 Janett Catalan [facility] BLOOD CULTURE SCREEN 2019-11-15 15:49:00 [facility] COVID-19 (ID NOW RAPID TESTING) 2019-11-14 23:17:[address] [facility] EKG-12 LEAD 2019-09-13 08:06:25 Tere Sheikh [facility] ASSIGNMENT OF BENEFITS 2019-09-13 07:16:54 Docto r Unassigned, [place] [facility] CONSENT/REFUSAL FOR DIAGNOSIS AND TREATMENT 2019-09-13 07:16:41 Doctor Unassigned, [place] [facility] US PELVIS > 14 WEEKS 2017-01-04 20:34:[address] [facility] Encounters Start Date/Time End Date/Time Encounter Type Admission Type Attending Clinicians Care Facility Care Department Encounter ID Source 2021-01-02 19:53:37 Emergency [facility] [id number] [facility] 2021-01-02 17:59:45 Outpatient KEL BAILEY [facility] [id number] [facility] 2021-01-02 16:43:08 Inpatient U JOSÉ SERVIN [facility] [id number] [facility] 2021-01-02 05:40:25 Emergency [facility] [id number] [facility] 2019-12-03 15:44:00 Inpatient HCACL EZRA [id number] [facility] 2017-01-04 00:00:00 2024-04-21 03:34:49 Orders Only Doctor Unassigned, [place] Doctor Unassigned, [place] [facility] .840.114 350.1.13.10 4.2.7.2.686 [id number] [facility] 2020-05-27 00:00:00 2020-05-27 00:00:00 Patient Outreach Domenic Prakash [facility] .840.114 350.1.13.10 4.2.7.2.686 [id number] [facility] 2020-01-10 00:00:00 2020-01-10 00:00:00 Telephone Kel Bailey [facility] Medical Office Building 1.2.840.114 350.1.13.10 4.2.7.2.686 [id number] [facility] 2019-12-11 00:00:00 2019-12-11 00:00:00 Telephone Kel Bailey [facility] Office Building 1.2.840.114 350.1.13.10 4.2.7.2.686 [id number] [facility] 2019-12-06 00:00:00 2019-12-06 00:00:00 Transition of Care Heaton Rose Jeff Cloud 1.2.840.114 350.1.13.10 4.2.7.2.686 [id number] [facility] 2019-12-03 18:38:00 2019-12-05 15:55:00 Hospital En[facility] 1.2.840.114 350.1.13.10 4.2.7.2.686 [id number] [facility] 2019-12-03 00:00:00 2019-12-03 00:00:00 Telephone Kel Bailey [facility] Office Building 1.2.840.114 350.1.13.10 4.2.7.2.686 [id number] 2019-12-03 00:00:00 2019-12-03 00:00:00 Telephone Kel Bailey [facility] 1.2.840.114 350.1.13.10 4.2.7.2.686 [id number] [facility] 2019-11-28 00:00:00 2019-11-28 00:00:00 Patient Outreach Mayank Sindi Robertssammy Cloud 1.2.840.114 350.1.13.10 4.2.7.2.686 [id number] 2019-11-28 00:00:00 2019-11-28 00:00:00 Patient Outreach Sindi Talley 1.2.840.114 350.1.13.10 4.2.7.2.686 [id number] [facility] 2019-11-23 09:27:40 2019-11-23 09:57:40 Office Visit Leo [facility] Office Building 1.2.840.114 350.1.13.10 4.2.7.2.686 [id number] 2019-11-23 09:27:40 2019-11-23 09:57:40 Office Visit Leo [facility] Office Building 1.2.840.114 350.1.13.10 4.2.7.2.686 [id number] [facility] 2019-11-23 09:30:00 2019-11-23 09:30:00 Outpatient R [facility] [id number] [facility] 2019-11-23 00:00:00 2019-11-23 00:00:00 Orders Only Doctor Unassigned, [place] [facility] 1.2.840.114 350.1.13.10 4.2.7.2.686 [id number] [facility] 2019-11-23 00:00:00 2019-11-23 00:00:00 Telephone Leo [facility] Medical Office Building 1.2840.114 350.1.13.10 4.2.7.2.686 [id number] [facility] 2019-11-23 00:00:00 2019-11-23 00:00:00 Telephone Leo [facility] Office Building 1.2.840.114 350.1.13.10 4.2.7.2.686 [id number] [facility] 2019-11-23 00:00:00 2019-11-23 00:00:00 Telephone Kel Bailey [facility] Office Building 1.2.840.114 350.1.13.10 4.2.7.2.686 [id number] 2019-11-23 00:00:00 2019-11-23 00:00:00 Telephone Kel Bailey [facility] Office Building 1.2.840.114 350.1.13.10 4.2.7.2.686 [id number] 2019-11-20 00:00:00 2019-11-20 00:00:00 Orders Only Doctor Unassigned, [place] [facility] 1.2.840.114 350.1.13.10 4.2.7.2.686 [id number] [id number] [facility] 2019-11-19 00:00:00 2019-11-19 00:00:00 Transition of Care Rose Heaton 1.2.840.114 350.1.13.10 4.2.7.2.686 [id number] [facility] 2019-11-19 00:00:00 2019-11-19 00:00:00 Transition of Care Rose Heaton 1.2.840.114 350.1.13.10 4.2.7.2.686 [id number] [facility] 2019-11-14 18:22:00 2019-11-16 15:31:00 Hospital Encounter José Servin [facility] ([facility]) 1.2.840.114 350.1.13.10 4.2.7.2.686 [id number] [facility] 2019-11-16 00:00:00 2019-11-16 00:00:00 Prep For Surgery Kel Bailey [facility] Office Building 1.2.840.114 350.1.13.10 4.2.7.2.686 [id number] [facility] 2019-09-13 02:36:56 2019-09-13 04:01:00 Emergency Tere Sheikh [facility] 1.2.840.114 350.1.13.10 4.2.7.2.686 [id number] [facility] 2019-09-13 00:00:00 2019-09-13 00:00:00 Orders Only Doctor Unassigned, [place] [facility] 1.2.840.114 350.1.13.10 4.2.7.2.686 [id number] [facility] 2019-02-16 17:01:30 2019-02-16 18:52:00 Emergency X ANDREA GORMAN III [facility] ERT [id number] [facility] Results Test Description Test Time Test Comments Results Resul t Comments Source XR KUB 2019-12-05 13:46:30 EXAM: XR KUB HISTORY: ureteral stent COMPARISON: None. FINDINGS: A ureteral stent connects the left renal pelvis with the urinary bladder.The bowel gas pattern is normal and no opaque stones or masses are found. ? [facility], Radiant Results Inft User - 12/05/2019 8:47 AM CDTEXAM: XR KUBHISTORY: ureteral stent COMPARISON: None.FINDINGS: A ureteral stent connects the left renal pelvis with the urinary bladder.The bowel gas pattern is normal and no opaque stones or masses are found. [facility] ([facility]2019-12-04 19:00:05 These images do not require a Radiology diagnostic report.[facility] RET[facility]AL [id number] 01:47:26Impression: No acute abnormalities evident. RL: 460 End of Report Ordering Physician: ?TIANNA ELISE History: ?Hematuria. History ofkidney stones. Technique: Retroperitoneal ultrasound Comparison: None. Correlation is made with a CT of the abdomen and pelvisperformed November 24, 2019. Findings: ? The right kidney measures 12.3 x 4.8 x 4.9 cm and the right kidney 11.5 x5.5 x 5.8 cm. There is no hydronephrosis. The small left intrarenalcalculus seen on the prior CT is not visible sonographically. Renalcortical echogenicity iswithin normal limits. The urinary bladder isdecompressed and not well evaluated. [facility], Radiant Results Inft User - 12/03/2019 8:48 PM CDTOrdering Physician: TIANNA JURADOOHistory: Hematuria. History of kidney stones.Technique: Retroperitoneal ultrasoundComparison: None. Correlation is made with aCT of the abdomen and pelvisperformed November 24, 2019.Findings: The right kidney measures 12.3 x4.8 x 4.9 cm and the right kidney 11.5 x5.5 x 5.8 cm. There is no hydronephrosis. The small left intrarenalcalculus seen on the prior CT is not visible sonographically. Renalcortical echogenicity is within normal limits. The urinary bladder isdecompressed and not well evaluated.IMPRESSIONImpression:No acute abnormalities evident.RL: 460End of Report [facility]ownCOVID-19 (ID NOW RAPID TESTING)2019-12-04 01:14:00* Test Item Value Reference Range Interpretation Comme nts SARS-CoV-2 Rapid ID NOW (test code = 45882-2) Not Detected Not Detected MARK ANTHONY (test code = MARK ANTHONY) ID NOW COVID-19 As say is an isothermal nucleic acid amplification test intended for the qualitative detection of nucleic acid from SARS-CoV-2 viral RNA in nasopharyngeal (BOAT PULLER) specimens. It is used under Emergency Use Authorization (EUA) by FDA. The limit of detection (LOD) of the assay is 125 Genome Equivalents/mL. A positive result is indicative of the presence of SARS-CoV-2 RNA. ?Clinical correlation with patient history and other diagnostic information is necessary to determine patient infection status. A negative (Not Detected) result does not preclude SARS-CoV-2 infection. In patients with clinical symptoms and other tests that are consistent with SARS-CoV-2 infection, negative results should be treated as presumptive negative and a new specimen should be tested with alternative PCR molecular test. Invalid: Please collect a new specimen for repeat patient testing if clinically indicated. Lab Interpretation (test code = 21035-7) Normal [facility] [id number] 00:38:00* Test Item Value Reference Range Interpretation Comme nts POCT PREG (test code = 1605) negative On board controls acceptable with C Line (test code = 3574) negatvie POCT PREG LOT # (test code = 3575) [id number] POCT PREG TEST DATE ( test code = 3576) 01/04/2021 Lab Interpretation (test cod e = 77160-6) Normal [facility] CenterUrinalysis2020-09-29 00:31:00* Test Item Value Reference Range Interpretation Comme nts APPEARANCE (test code = 8962708133) Hazy Clear A COLOR (test code = 7128146944) Red Yellow A PH (test code = 8042797113) 4.8-8.0 SP GRAVITY (test code = 0488242527) 1.003-1.030 GLU U QUAL (test code = 8050496986) Normal Normal BLOOD (test code = 1059844630) 3+ Negative A KETONES (test code = 8348634276) Negative Negative PROTEIN (test code = 2887-8) 100 mg/dL Negative A UROBILIN (test code = 7690858104) Normal Normal BILIRUBIN (test code = 0568542356) Negative Negative NITRITE (test code = 2114814517) Negative Negative LEUK UMANG (test code = 8287845912) 75/uL Negative A RBC/HPF (test code = 5169047324) >182 See_Comment H [Automated messa ge] The system which generated this result transmitted reference range: 0 - 3 HPF. The reference range was not used to interpret this result as normal/abnormal. WBC/HPF (test code = 2492461677) See_Comment H [Automated [employer] ge] The system which generated this result transmitted reference range: 0 - 5 HPF. The reference range was not used to interpret this result as normal/abnormal. BACTERIA (test code = 5597926865) Negative Negative MUCOUS (test code = 5209308210) Moderate Negative LPF A SQ EPITH (test code = 9142759838) See_Comment [Automated messa ge] The system which generated this result transmitted reference range: <=2 HPF. The reference range was not used to interpret this result as normal/abnormal. Lab Interpretation (test code = 62096-8) Abnormal [facility] (ALB, T.PRO, BILI T, BU/BC, ALT, AST, ALK PHOS)2019-12-04 00:19:00* Test Item Value Reference Range Interpretation Comme nts TOTAL BILI (test code = 8562177370) 0.6 mg/dL 0.1-1.1 BILI UNCON (test code = 3694947599) 0.7 mg/dL 0.1-1.1 BILI CONJ (test code = 9403632671) 0.0 mg/dL 0-0.3 T PROTEIN (test code = 5097891920) 7.5 g/dL 6.3-8.2 ALBUMIN (test code = 7001206179) 4.4 g/dL 3.5-5 ALK PHOS (test code = 6521988036) 94 U/L 34-122 ALTv (test code = 1742-6) 20 U/L 5-35 AST(SGOT) (test code = 3988971318) 25 U/L 13-40 Lab Interpretation (test cod e = 56143-7) Normal [facility] (NA, K, CL, CO2, GLUCOSE, BUN, CREATININE, CA)2019-12-04 00:19:00* Test Item Value Reference Range Interpretation Comme nts NA (test code = 9648023536) 141 mmol/L 135-145 K (test code = 9444845093) 4.2 mmol/L 3.5-5 CL (test code = 5721931358) 105 mmol/L 98-108 CO2 TOTAL (test code = 7657328520) 24 mmol/L 23-31 AGAP (test code = 6621441563) 2-16 BUN (test code = 4969978336) 11 mg/dL 7-23 GLUCOSE (test code = 7410788921) 92 mg/dL 70-110 CREATININE (test code = 2295569283) 0.82 mg/dL 0.5-1.04 CALCIUM (test code = 6606153091) 9.1 mg/dL 8.6-10.6 eGFR Calculation (Non-) (test code = 4258005919) mL/min/1.73m2 eGFR Calculation () (test code = 3268468467) mL/min/1.73m2 MARK ANTHONY (test code = MARK ANTHONY) Association of Glomerular Filtration Rate (GFR) and Staging of Kidney Disease* + -+ + ---+| GFR (mL/min/1.73 m2) ?| With Kidney Damage ?| ?Without Kidney Damage+ -------+ ------+ ---------+| ?>90 ?| ?Stage one ?| ? Normal ?+ --+ -+ ----+| ?60-89 ?| ?Stage two ?| ? Decreased GFR ? + -+ + ---+| ?30-59 ?| ?Stage three ?| ? Stage three ? + -+ + ---+| ?15-29 ?| ?Stage four ? | ? Stage four ?+ --+ -+ ----+| ?<15 (or dialysis) ? ?| ?Stage five ? | ? Stage five ?+ --+ -+ ----+ *Each stage assumes the associated GFR level has been in effect for at least three months. ?Stages 1 to 5, with or without kidney disease, indicate chronic kidney disease. Notes: Determination of stages one and two (with eGFR >59mL/min/1.73 m2) requires estimation of kidney damage for at least three months as defined by structural or functional abnormalities of the kidney, manifested by either:Pathological abnormalities or Markers of kidney damage (including abnormalities in the composition of the blood or urine or abnormalities in imaging tests). [facility] with [id number] 00:08:00* Test Item Value Reference Range Interpretation Comme nts WBC (test code = 6690-2) See_Comment H [Automated [employer]] The system which generated this result transmitted reference range: 4.30 - 11.10 10*3/?L. The reference range was not used to interpret this result as normal/abnormal. RBC (test code = 789-8) See_Comment [Automated [employer]] The system which generated this result transmitted reference range: 3.93 - 5.25 10*6/?L. The reference range was not used to interpret this result as normal/abnormal. HGB (test code = 718-7) 12.0 g/dL 11.6-15 HCT (test code = 4544-3) 37.3 % 35.7-45.2 MCV (test code = 787-2) 85.4 fL 80.6-95.5 MCH (test code = 785-6) 27.5 pg 25.9-32.8 MCHC (test code = 786-4) 32.2 g/dL 31.6-35.1 RDW-SD (test code = 06335-2) 44.1 fL 39-49.9 RDW-CV (test code = 788-0) 14.3 % 12-15.5 PLT (test code = 777-3) See_Comment H [Automated messa ge] The system which generated this result transmitted reference range: 166 - 358 10*3/?L. The reference range was not used to interpret this result as normal/abnormal. MPV (test code = 98817-6) 9.9 fL 9.5-12.9 NRBC/100 WBC (test code = 9224183528) See_Comment [Automated [employer] ssage] The system which generated this result transmitted reference range: 0.0 - 10.0 /100 WBCs. The reference range was not used to interpret this result as normal/abnormal. NRBC x10^3 (test code = 4848166912) <0.01 See_Comment [Automated messa ge] The system which generated this result transmitted reference range: 10*3/?L. The reference range was not used to interpret this result as normal/abnormal. GRAN MAT (NEUT) % (test code = 770-8) 74.0 % IMM GRAN % (test code = 1120648982) 0.40 % LYMPH % (test code = 736-9) 19.9 % MONO % (test code = 5905-5) 4.0 % EOS % (test code = 713-8) 1.5 % BASO % (test code = 706-2) 0.2 % GRAN MAT x10^3(ANC) (test code = 8840852172) 8.29 10*3/uL 1.88-7.09 H IMM GRAN x10^3 (test code = 9798287960) 0.04 10*3/uL 0-0.06 LYMPH x10^3 (test code = 731-0) 2.23 10*3/uL 1.32-3.29 MONO x10^3 (test code = 742-7) 0.45 10*3/uL 0.33-0.92 EOS x10^3 (test code = 711-2) 0.17 10*3/uL 0.03-0.39 BASO x10^3 (test code = 704-7) <0.03 0.01-0.07 Lab Interpretation (test code = 84872-3) Abnormal 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 COMPARISON: No recent relevant priors. Brief reference is made to an early OB ultrasound from 11/06/2010 ADMINISTERED CONTRAST: None. DLP: 691.34 mGy-cm TECHNIQUE: Noncontrasted helical imaging was performed from the kidneys through the symphysis as a renal stone protocol. Axial and coronal reformations are available. FINDINGS: This examination is limited for the evaluation of solid organs and vascular structures due to lack of intravenous contrast, which is standard for urinary calculus assessment CT. KIDNEYS/BLADDER: Nonobstructing left nephrolithiasis with well-positioned left nephroureteral stent showing no evidence of kink, fracture or migration. No hydronephrosis. Minimal nonobstructive nephrolithiasis in the right renal lower pole. The bladder is partially decompressed with no calculi, soft tissue filling defects or d iverticula. LOWER CHEST: The lung bases are clear. SOLID ORGANS: Extensive cholelithiasis is noted with no signs of cholecystitis. No biliary dilatation. Accounting for the lack of IV contrast, no gross focal abnormalities are seen in the liver, spleen, pancreas or adrenal glands. BOWEL: Limited bowel assessment without oral contrast. No pneumatosis. Large volume colonic fecal material diffusely.No signs of diverticulitis. Normal caliber appendix without thickening or inflammation. PERITONEUM:No free intraperitoneal fluid or air. RETROPERITONEUM: No adenopathy. The aorta is unremarkable. PELVIS: No pelvic adenopathy, mass or free fluid. No inguinal hernia or adenopathy. PAGE 1 Signed Report (CONTINUED) Name: ELDA ROLAND 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 Also, broad-based 2 mm posterior disc bulge/marginal osteophyte complex at T11- T12 causing mild spinal canal stenosis. IMPRESSION: 1. Bilateral nonobstructive nephrolithiasis. 2. Low position left nephroureteral stent without kink, fracture or migration. 3. Constipation with nonobstructive bowel gas pattern. 4. Broad-based 2 mm posterior disc bulges at T11-T12 and L5-S1. ____ CT imaging performed at this location utilizes radiation dose optimization techniques which include one or more of the following: -Automated exposure control -Adjustment of the mA and/or kV according to patient size -Use of iterative reconstruction technique SL: ROSALVA at 1815 Reported and signed by: Andrea Amor M.D. CC: Violeta Luna Technologist:RT Mahad(R) CTDI: DLP: Trnscb Date/Time: 12/03/2019 (1814) [email or web address] Orig Print D/T: S: 12/03/2019 (1817) PAGE 2 Signed ReportCOMPREHENSIVE METABOLIC PANEL 2019-12-03 17:08:00* Test Item Value Reference Range Interpretation Comme nts SODIUM (test code = NA) 136 mEq/L 134-147 N POTASSIUM (test code = K) 3.9 mEq/L 3.4-5.0 N CHLORIDE (test code = CL) 105 mEq/L 100-108 N CARBON DIOXIDE (test code = CO2) 27 mEq/L 21-33 N ANION GAP (test code = GAP) 8 0-20 N GLUCOSE (test code = GLU) 98 mg/dL 70-110 N BLOOD UREA NITROGEN (test code = BUN) 12 mg/dL 7-18 N GLOMERULAR FILTRATION RATE (test code = GFR) 65.5 110-120 L Units of measure = ml/min/1.73 m2 CREATININE (test code = CREAT) 1.0 mg/dL 0.6-1.3 N TOTAL PROTEIN (test code = PROT) 7.9 g/dL 6.4-8.2 N ALBUMIN (test code = ALB) 4.40 g/dL 3.4-5.0 N CALCIUM (test code = CA) 9.7 mg/dL 8.0-10.5 N BILIRUBIN TOTAL (test code = BILT) 0.70 mg/dL 0.0-1.0 N SGOT/AST (test code = AST) 26 IUnit/L 15-37 N SGPT/ALT (test code = ALT) 21 IUnit/L 30-65 L ALKALINE PHOSPHATASE TOTAL (test code = ALKP) 100 IUnit/L 20-125 N HCG SERUM [id number] 17:06:00* Test Item Value Reference Range Interpretation Comme nts HCG SERUM QUAL (test code = HCGQL) SERUM NEGATIVE NEGATIVE CBC W/AUTO [id number] 16:53:00* Test Item Value Reference Range Interpretation Comme nts WHITE BLOOD CELL (test code = WBC) 9.79 x10 3/uL 4.5-11.0 N RED BLOOD CELL (test code = RBC) 4.48 x10 6/uL 3.54-5.02 N HEMOGLOBIN (test code = HGB) 12.1 g/dL 11.0-15.0 N HEMATOCRIT (test code = HCT) 39.0 % 33.0-45.0 N MEAN CELL VOLUME (test code = MCV) 87.1 fL 81.0-99.0 N MEAN CELL HGB (test code = MCH) 27.0 pg 27.0-33.0 N MEAN CELL HGB CONCETRATION (test code = MCHC) 31.0 g/dL 33.0-37.0 L RED CELL DISTRIBUTION WIDTH CV (test code = RDW) 14.2 % 11.5-14.5 N RED CELL DISTRIBUTION WIDTH SD (test code = RDW-SD) 45.1 fL 37.0-54.0 N PLATELET COUNT (test code = PLT) 455 x10 3/uL 150-400 H MEAN PLATELET VOLUME (test c ode = MPV) 9.7 fL 7.0-9.0 H NEUTROPHIL % (test code = NT%) 70.0 % 56.0-77.0 N IMMATURE GRANULOCYTE % (test code = IG%) 0.4 % 0.0-2.0 N LYMPHOCYTE % (test code = LY%) 20.9 % 14.0-32.0 N MONOCYTE % (test code = MO%) 6.2 % 4.8-9.0 N EOSINOPHIL % (test code = EO%) 2.3 % 0.3-3.7 N BASOPHIL % (test code = BA%) 0.2 % 0.0-2.0 N NUCLEATED RBC % (test code = NRBC%) 0.0 % 0-0 N NEUTROPHIL # (test code = NT#) 6.84 x10 3/uL 2.0-7.6 N IMMATURE GRANULOCYTE # (test code = IG#) 0.04 x10 3/uL 0.00-0.03 H LYMPHOCYTE # (test code = LY#) 2.05 x10 3/uL 1.0-3.8 N MONOCYTE # (test code = MO#) 0.61 x10 3/uL 0.1-0.8 N EOSINOPHIL # (test code = EO#) 0.23 x10 3/uL 0.0-0.2 H BASOPHIL # (test code = BA#) 0.02 x10 3/uL 0.0-0.2 N NUCLEATED RBC # (test code = NRBC#) 0.00 x10 3/uL 0.0-0.1 N MANUAL DIFF REQUIRED (test c ode = MDIFF) NO UA RFLX MICR CULT IF [id number] 16:32:00* Test Item Value Reference Range Interpretation Comme nts UA COLOR (test code = COLU) YELLOW YEL/STRAW UA APPEARANCE (test code = APPU) CLEAR CLEAR UA GLUCOSE DIPSTICK (test co de = DGLUU) NEGATIVE NEGATIVE UA BILIRUBIN DIPSTICK (test code = BILU) NEGATIVE NEGATIVE UA KETONE DIPSTICK (test cod e = KETU) NEGATIVE NEGATIVE UA SPECIFIC GRAVITY (test co de = SGU) 1.013 1.005-1.030 N UA BLOOD DIPSTICK (test code = SUMAN) 3+ NEGATIVE A UA PH DIPSTICK (test code = LIZET) 8.0 5.0-7.0 H UA PROTEIN DIPSTICK (test co de = PROU) 1+ NEGATIVE A UA UROBILINIOGEN DIPSTICK (t est code = URO) 0.2 mg/dL 0.2-1.0 UA NITRITE DIPSTICK (test co de = MI) NEGATIVE NEGATIVE UA LEUKOCYTE ESTERASE DIPSTI CK (test code = LEUU) 1+ NEGATIVE A UA WBC (test code = WBCU) 21-50 WBC/HPF 0-3 A UA RBC (test code = RBCU) >50 RBC/HPF 0-3 A UA WBC NO REFLEX (test code = WBCUCL) 21-50 WBC/HPF 0-3 A UA BACTERIA (test code = BACU) TRACE /HPF NONE SEEN UA SQUAMOUS CELLS (test code = SQU) 0-5 /HPF NONE SEEN UA MUCUS (test code = MUCU) 1+ /LPF NONE SEEN Indication for culture: Dysuria/FrequencySpecimen Description: MID STREAMURINE [id number] 12:12:00* Test Item Value Reference Range Interpretation Comme nts URINE CULTURE (test code = 630-4) No aerobic growth (< 1000 CFU/mL) [facility] ([facility]-REPORTABLE)2019-11-15 21:41:51 These images do not require a Radiology diagnostic report.[facility] TEST, [id number] 19:38:00* Test Item Value Reference Range Interpretation Comme nts PREG URINE (test code = 0573481723) Negative MARK ANTHONY (test code = MARK ANTHONY) Less than 20 IU/L. ?If low titer or ectopic is suspected, resubmit specimen in 48-72 hours. [facility] METABOLIC PANEL (NA, K, CL, CO2, GLUCOSE, BUN, CREATININE, CA)2019-11-15 16:24:00* Test Item Value Reference Range Interpretation Comme nts NA (test code = 1811136060) 135 mmol/L 135-145 K (test code = 1586990559) 3.5 mmol/L 3.5-5 CL (test code = 2198057366) 106 mmol/L 98-108 CO2 TOTAL (test code = 3985753318) 26 mmol/L 23-31 AGAP (test code = 0202244587) 2-16 BUN (test code = 0489090654) 5 mg/dL 7-23 L GLUCOSE (test code = 7623126632) 104 mg/dL 70-110 CREATININE (test code = 2528195062) 0.68 mg/dL 0.5-1.04 CALCIUM (test code = 6194041292) 8.3 mg/dL 8.6-10.6 L eGFR Calculation (Non-) (test code = 6312724737) mL/min/1.73m2 eGFR Calculation () (test code = 4013212815) mL/min/1.73m2 MARK ANTHONY (test code = MARK ANTHONY) Association of Glomerular Filtration Rate (GFR) and Staging of Kidney Disease* + --+ --+ ------+| GFR (mL/min/1.73 m2) ?| With Kidney Damage ?| ?Without Kidney Damage+ --------+ --------+ +| ?>90 ?| ?Stage one ?| ? Normal ?+ ---+ ---+ -------+| ?60-89 ?| ?Stage two ?| ? Decreased GFR ? + --+ --+ ------+| ?30-59 ?| ?Stage three ?| ? Stage three ? + --+ --+ ------+| ?15-29 ?| ?Stage four ? | ? Stage four ?+ ---+ ---+ -------+| ?<15 (or dialysis) ? ?| ?Stage five ? | ? Stage five ?+ ---+ ---+ -------+ *Each stage assumes the associated GFR level has been in effect for at least three months. ?Stages 1 to 5, with or without kidney disease, indicate chronic kidney disease. Notes: Determination of stages one and two (with eGFR >59mL/min/1.73 m2) requires estimation of kidney damage for at least three months as defined by structural or functional abnormalities of the kidney, manifested by either:Pathological abnormalities or Markers of kidney damage (including abnormalities in the composition of the blood or urine or abnormalities in imaging tests). Lab Interpretation (test code = 00109-1) Abnormal [facility] WITH [id number] 16:13:00* Test Item Value Reference Range Interpretation Comme nts WBC (test code = 6690-2) See_Comment [Automated iFit] The system which generated this result transmitted reference range: 4.30 - 11.10 10*3/?L. The reference range was not used to interpret this result as normal/abnormal. RBC (test code = 789-8) See_Comment L [Automated iFit] The system which generated this result transmitted reference range: 3.93 - 5.25 10*6/?L. The reference range was not used to interpret this result as normal/abnormal. HGB (test code = 718-7) 9.7 g/dL 11.6-15 L HCT (test code = 4544-3) 30.3 % 35.7-45.2 L MCV (test code = 787-2) 86.1 fL 80.6-95.5 MCH (test code = 785-6) 27.6 pg 25.9-32.8 MCHC (test code = 786-4) 32.0 g/dL 31.6-35.1 RDW-SD (test code = 86003-2) 46.3 fL 39-49.9 RDW-CV (test code = 788-0) 14.7 % 12-15.5 PLT (test code = 777-3) See_Comment [Automated messa ge] The system which generated this result transmitted reference range: 166 - 358 10*3/?L. The reference range was not used to interpret this result as normal/abnormal. MPV (test code = 32161-2) 9.8 fL 9.5-12.9 NRBC/100 WBC (test code = 6431414378) See_Comment [Automated [employer] ssage] The system which generated this result transmitted reference range: 0.0 - 10.0 /100 WBCs. The reference range was not used to interpret this result as normal/abnormal. NRBC x10^3 (test code = 3765063681) <0.01 See_Comment [Automated messa ge] The system which generated this result transmitted reference range: 10*3/?L. The reference range was not used to interpret this result as normal/abnormal. GRAN MAT (NEUT) % (test code = 770-8) 82.0 % IMM GRAN % (test code = 8512512005) 0.70 % LYMPH % (test code = 736-9) 9.9 % MONO % (test code = 5905-5) 7.0 % EOS % (test code = 713-8) 0.1 % BASO % (test code = 706-2) 0.3 % GRAN MAT x10^3(ANC) (test code = 5585337624) 7.14 10*3/uL 1.88-7.09 H IMM GRAN x10^3 (test code = 9736478901) 0.06 10*3/uL 0-0.06 LYMPH x10^3 (test code = 731-0) 0.86 10*3/uL 1.32-3.29 L MONO x10^3 (test code = 742-7) 0.61 10*3/uL 0.33-0.92 EOS x10^3 (test code = 711-2) <0.03 0.03-0.39 L BASO x10^3 (test code = 704-7) 0.03 10*3/uL 0.01-0.07 Lab Interpretation (test code = 42824-9) Abnormal [facility]COVID[facility] (ID NOW RAPID TESTING)2019-11-15 00:35:00* Test Item Value Reference Range Interpretation Comme nts SARS-CoV-2 Rapid ID NOW (test code = 67838-8) Not Detected Not Detected MARK ANTHONY (test code = MARK ANTHONY) ID NOW COVID-19 As say is an isothermal nucleic acid amplification test intended for the qualitative detection of nucleic acid from SARS-CoV-2 viral RNA in nasopharyngeal (BOAT PULLER) specimens. It is used under Emergency Use Authorization (EUA) by FDA. The limit of detection (LOD) of the assay is 125 Genome Equivalents/mL. A positive result is indicative of the presence of SARS-CoV-2 RNA. ?Clinical correlation with patient history and other diagnostic information is necessary to determine patient infection status. A negative (Not Detected) result does not preclude SARS-CoV-2 infection. In patients with clinical symptoms and other tests that are consistent with SARS-CoV-2 infection, negative results should be treated as presumptive negative and a new specimen should be tested with alternative PCR molecular test. Invalid: Please collect a new specimen for repeat patient testing if clinically indicated. Lab Interpretation (test code = 35041-2) Normal [facility] CenterUS PELVIS,[id number] 20:42:00 *.*.*.*.*.*.*.*.*.*.*.*.*.*FINAL*.*.*.*.*.*.*.*.*.*.*.*.*.*.*HISTORY: deceleration. Evaluate . TECHNIQUE: Routine OB sonography of the gravid uterus is completed. ? GA: 38 weeks and 6 days. FINDINGS: Single live IUP is confirmed. MEASUREMENTS: ? RATIOS:BPD = 09.61 cm. = 39 weeks 2 day ? HC/AC = 0.97(0.96-1.18 )HC ?= ?33.85 cm. = 39 weeks0 day ? FL/AC = 20 ( 20? 24 )AC ? = ?35.03 cm. = 39 weeks 0 day ? FL/BPD= 74 ( 71? 87 )FL ?= ?07.14 cm. = 36 weeks 5 day COMPOSITE AGE = 38 weeks 6 day. Landmarks for BPD measurements are notappropriate. PLACENTA / AMNIOTIC FLUID: ?Amniotic fluid is normal. ?ELVIS = 6.33 cm. ?Placenta is ?posterior fundal ? Grade ?II ? No evidence of placenta previa. ? FETUS:Normal four-chambered heart. ?FHR = ?66 BPMThree vessels of umbilical cord identified. stomach seen on the left side.Normal kidneys and bladder.Normal head and spine. WEIGHT: ?3498 gm.FABY: 01/14/2017. CONCLUSION: 1. Single live IUP of ?38 weeks and 6 ?day ?in cephalic presentation confirmed. 2. Amniotic fluid volume is near the lower limits of normal.3. FHR recorded bythe technologist at 66 bpm, however, I believe this is atechnical error based on the superior images of cardiac activity. ?LENARD HAMMONDS M.D., D.A.B.R. ?Personally interpreted by: MANDA HAMMONDS MD /Signed/ MANDA HAMMONDS MD [facility] Notes Date/Time Note Provider Source 2019-12-03 17:31:00 [facility] ([facility] EMERGENCY PROVIDER REPORT REPORT#:[id number] REPORT STATUS: Signed DATE:12/03/19 TIME: 1731 PATIENT: ELDA ROLAND UNIT #: [id number] ROOM/BED: AGE: 29 SEX: F PCP PHYS: No Primary or Family Physician SERVICE AUTHOR: Violeta Luna * ALL edits or amendments must be made on the electronic/computer document * HPI- Female General Confirmed Patient Yes Patient Type New patient Initial Greet Date/Time 12/03/19 1614 Presentation Chief Complaint Flank pain L Hx Obtained From Patient )( Sudden in Onset? No Onset Occurred Days ago (2) Symptom Duration Since onset Progression since Onset Unchanged, Constant Context of Onset Spontaneous Caused by No trauma by history Location Flank L Quality Painful Radiation No: Does not radiate. Associated Other Pt denies other symptoms Exacerbated by Nothing Relieved by Nothing Free Text HPI Notes Free Text HPI Notes 29-year-old female with history of left kidney stone and ureteral stent (placed November 2019) presents to ER with increased left flank pain x2 days. Patient reports she completed oral antibiotics antibiotics Tuesday and pain has worsened since then. Reports she spoke with urologist who told her to come to ER. Denies fever, dysuria, nausea/vomiting, diarrhea or constipation, or any other associated Risk- Female Risk Stratification Ectopic Risk factors reviewed Review of Systems ROS Statements All systems rev neg except as marked. Focused Review of Systems Constitutional Denies: Chills, Fever. GI Denies: Constipation, Diarrhea, Nausea, Vomiting. Female Reports: Dysuria, Flank pain, Hematuria. Past Medical History - Adult Stated Complaint LEFT FLANK PAIN Allergies Coded Allergies: No Known Allergies (11/06/10) Home Medications Reported Medications PNV WITH FE FUMARATE/FA () 1 TAB PO DAILY VENLAFAXINE XR (EFFEXOR XR) 150 MG PO DAILY Smoking status for patients 13 years old or older: Never Smoker Physical Exam Vital Signs Vital Signs First Documented: Result Date Time Pulse Ox 99 12/02 1554 B/P 132/76 12/02 1554 B/P Mean 94 12/02 1554 O2 Delivery Room air 12/02 1554 Temp 37.1 12/02 1554 Pulse 93 12/02 1554 Resp 18 12/02 1554 Last Documented: Result Date Time Pulse Ox 99 12/02 1554 B/P 132/76 12/02 1554 B/P Mean 94 12/02 1554 O2 Delivery Room air 12/02 1554 Temp 37.1 12/02 1554 Pulse 93 12/02 1554 Resp 18 12/02 1554 Review of Vital Signs Reviewed Focused PE General/Const General/Const Awake, Alert, Cooperative Resp/Chest Respiratory/Chest Breath sounds NL, Breath sounds = bilat, No rales, No rhonchi, No wheezing Cardiovascular Cardiovascular Heart rate NL, Regular rhythm, Heart sounds NL Abdomen/GI Abdomen/GI Soft, Non-tender, No guarding, No rebound, BS normoactive, No distention Text/Dict Notes Left flank/CVA tenderness upon palpation MS Back Back Inspection NL, No midline vertebral tend, No paraspinal tenderness Text/Dict Notes Left flank/left CVA tenderness on palpation Skin Skin Warm, Dry, Intact Genitourinary General Exam deferred Interpretation Diagnostics Lab Results Interpretation Results Laboratory Tests 12/03/19 1640: [Embedded Image Not Available] Laboratory Tests: 12/02 12/02 12/02 8170 1072 9061 Chemistry Sodium (134 - 147 mEq/L) 136 Potassium (3.4 - 5.0 mEq/L) 3.9 Chloride (100 - 108 mEq/L) 105 Carbon Dioxide (21 - 33 mEq/L) 27 Anion Gap (0 - 20) 8 BUN (7 - 18 mg/dL) 12 Creatinine (0.6 - 1.3 mg/dL) 1.0 Glomerular Filtr Rate (110 - 120) 65.5 L Glucose (70 - 110 mg/dL) 98 Calcium (8.0 - 10.5 mg/dL) 9.7 Total Bilirubin (0.0 - 1.0 mg/dL) 0.70 AST (15 - 37 IUnit/L) 26 ALT (30 - 65 IUnit/L) 21 L Total Alk Phosphatase (20 - 125 IUnit/L) 100 Total Protein (6.4 - 8.2 g/dL) 7.9 Albumin (3.4 - 5.0 g/dL) 4.40 Serum , Qual (NEGATIVE) SERUM NEGATIVE Hematology WBC (4.5 - 11.0 x10 3/uL) 9.79 RBC (3.54 - 5.02 x10 6/uL) 4.48 Hgb (11.0 - 15.0 g/dL) 12.1 Hct (33.0 - 45.0 %) 39.0 MCV (81.0 - 99.0 fL) 87.1 MCH (27.0 - 33.0 pg) 27.0 MCHC (33.0 - 37.0 g/dL) 31.0 L RDW (11.5 - 14.5 %) 14.2 Plt Count (150 - 400 x10 3/uL) 455 H MPV (7.0 - 9.0 fL) 9.7 H Neut % (Auto) (56.0 - 77.0 %) 70.0 Lymph % (Auto) (14.0 - 32.0 %) 20.9 Alpine % (Auto) (4.8 - 9.0 %) 6.2 Eos % (Auto) (0.3 - 3.7 %) 2.3 Baso % (Auto) (0.0 - 2.0 %) 0.2 Neut # (Auto) (2.0 - 7.6 x10 3/uL) 6.84 Lymph # (Auto) (1.0 - 3.8 x10 3/uL) 2.05 Alpine # (Auto) (0.1 - 0.8 x10 3/uL) 0.61 Eos # (Auto) (0.0 - 0.2 x10 3/uL) 0.23 H Baso # (Auto) (0.0 - 0.2 x10 3/uL) 0.02 Abs Immat Gran (auto) (0.00 - 0.03 x10 3/uL) 0.04 H Add Manual Diff NO Immature Gran % (0.0 - 2.0 %) 0.4 Nucleated RBC % (0 - 0 %) 0.0 Nucleated RBCs # (Man) (0.0 - 0.1 x10 3/uL) 0.00 Urines Urine Color (YEL/STRAW) YELLOW Urine Appearance (CLEAR) CLEAR Urine pH (5.0 - 7.0) 8.0 H Ur Specific Ta[place] (1.005 - 1.030) 1.013 Urine Protein (NEGATIVE) 1+ H Urine Glucose (UA) (NEGATIVE) NEGATIVE Urine Ketones (NEGATIVE) NEGATIVE Urine Blood (NEGATIVE) 3+ H Urine Nitrite (NEGATIVE) NEGATIVE Urine Bilirubin (NEGATIVE) NEGATIVE Urine Urobilinogen (0.2 - 1.0 mg/dL) 0.2 Ur Leukocyte Esterase (NEGATIVE) 1+ H Urine RBC (0 - 3 RBC/HPF) >50 H Urine WBC (0 - 3 WBC/HPF) 21-50 H Ur Squamous Epith Cells (NONE SEEN /HPF) 0-5 Urine Bacteria (NONE SEEN /HPF) TRACE Urine Mucus (NONE SEEN /LPF) 1+ Microbiology: Date/Time Procedure - Status Source Growth 12/02 1553 Urine Culture - RECD URINE Point of Care Testing Pulse Oximetry Pulse Ox % 99 On: Room air Interpretation Interpreted by me, Pulse oximetry normal Re-Evaluation MDM ED Course Medication(s) Ordered Medication(s) Ordered: Anti-Infective Agents Sig/Dimitri Start time Last Medication Dose Route Stop Time Status Admin Ceftriaxone Sodium 1,000 MG X1ED STA 12/02 1718 DC Sodium Chloride 10 ML IV 12/02 1720 Central Nervous System Agents Sig/Dimitri Start time Last Medication Dose Route Stop Time Status Admin Ketorolac 30 MG X1ED STA 12/02 1620 DC 12/02 Tromethamine IV 12/02 1621 1637 Electrolytic, Caloric, And Nuris Sig/Dimitri Start time Last Medication Dose Route Stop Time Status Admin Sodium Chloride 1,000 ML X1ED STA 12/02 1620 DC 12/02 IV 12/02 1719 1637 Patient Discharge Departure Vital Signs/Condition Vital Signs First Documented: Result Date Time Pulse Ox 99 12/02 1554 B/P 132/76 12/02 1554 B/P Mean 94 12/02 1554 O2 Delivery Room air 12/02 1554 Temp 37.1 12/02 1554 Pulse 93 12/02 1554 Resp 18 12/02 1554 Last Documented: Result Date Time Pulse Ox 99 12/02 1554 B/P 132/76 12/02 1554 B/P Mean 94 12/02 1554 O2 Delivery Room air 12/02 1554 Temp 37.1 12/02 1554 Pulse 93 12/02 1554 Resp 18 12/02 1554 All vital signs available at the time of this entry have been reviewed. Discharge/Care Plan Referrals No Primary or Family Physician (PCP/Family) Pt/Provider Handoff Handoff Note This patient's care has been transferred to and accepted by [Baen [place]]. We discussed: the patient's chief complaint; labs and imaging that have been completed and those that are still pending; procedures that have been completed and those remaining to be done; any treatment provided and the patient's response to treatment; any significant change in condition; input from consultants if any; the treatment plan prior to the transfer of care. The accepting physician will follow up on all pending labs and imaging and make any necessary changes to the current impression and/or treatment plan. The accepting physician is now responsible for the patient's care and final disposition. at 1739 RPT #:[id number] END OF REPORT [facility] 2019-12-03 17:31:00 [facility] EMERGENCY PROVIDER REPORT REPORT#:[id number] REPORT STATUS: Signed DATE:12/03/19 TIME: 1731 PATIENT: ELDA ROLAND UNIT #: [id number] ROOM/BED: AGE: 29 SEX: F PCP PHYS: No Primary or Family Physician SERVICE AUTHOR: Violeta Luna * ALL edits or amendments must be made on the electronic/computer document * See Addendum HPI- Female General Confirmed Patient Yes Patient Type New patient Initial Greet Date/Time 12/03/19 1614 Presentation Chief Complaint Flank pain L Hx Obtained From Patient )( Sudden in Onset? No Onset Occurred Days ago (2) Symptom Duration Since onset Progression since Onset Unchanged, Constant Context of Onset Spontaneous Caused by No trauma by history Location Flank L Quality Painful Radiation No: Does not radiate. Associated Other Pt denies other symptoms Exacerbated by Nothing Relieved by Nothing Free Text HPI Notes Free Text HPI Notes 29-year-old female with history of left kidney stone and ureteral stent (placed November 2019) presents to ER with increased left flank pain x2 days. Patient reports she completed oral antibiotics antibiotics Tuesday and pain has worsened since then. Reports she spoke with urologist who told her to come to ER. Denies fever, dysuria, nausea/vomiting, diarrhea or constipation, or any other associated Risk- Female Risk Stratification Ectopic Risk factors reviewed Review of Systems ROS Statements All systems rev neg except as marked. Focused Review of Systems Constitutional Denies: Chills, Fever. GI Denies: Constipation, Diarrhea, Nausea, Vomiting. Female Reports: Dysuria, Flank pain, Hematuria. Past Medical History - Adult Stated Complaint LEFT FLANK PAIN Allergies Coded Allergies: No Known Allergies (11/06/10) Home Medications Reported Medications PNV WITH FE FUMARATE/FA () 1 TAB PO DAILY VENLAFAXINE XR (EFFEXOR XR) 150 MG PO DAILY Smoking status for patients 13 years old or older: Never Smoker Physical Exam Vital Signs Vital Signs First Documented: Result Date Time Pulse Ox 99 12/02 1554 B/P 132/76 12/02 1554 B/P Mean 94 12/02 1554 O2 Delivery Room air 12/02 1554 Temp 37.1 12/02 1554 Pulse 93 12/02 1554 Resp 18 12/02 1554 Last Documented: Result Date Time Pulse Ox 99 12/02 1554 B/P 132/76 12/02 1554 B/P Mean 94 12/02 1554 O2 Delivery Room air 12/02 1554 Temp 37.1 12/02 155 Pulse 93 12/02 1554 Resp 18 12/02 1554 Review of Vital Signs Reviewed Focused PE General/Const General/Const Awake, Alert, Cooperative Resp/Chest Respiratory/Chest Breath sounds NL, Breath sounds = bilat, No rales, No rhonchi, No wheezing Cardiovascular Cardiovascular Heart rate NL, Regular rhythm, Heart sounds NL Abdomen/GI Abdomen/GI Soft, Non-tender, No guarding, No rebound, BS normoactive, No distention Text/Dict Notes Left flank/CVA tenderness upon palpation MS Back Back Inspection NL, No midline vertebral tend, No paraspinal tenderness Text/Dict Notes Left flank/left CVA tenderness on palpation Skin Skin Warm, Dry, Intact Genitourinary General Exam deferred Interpretation Diagnostics Lab Results Interpretation Results Laboratory Tests 12/03/19 1640: [Embedded Image Not Available] Laboratory Tests: 12/02 12/02 12/02 1640 1640 1553 Chemistry Sodium (134 - 147 mEq/L) 136 Potassium (3.4 - 5.0 mEq/L) 3.9 Chloride (100 - 108 mEq/L) 105 Carbon Dioxide (21 - 33 mEq/L) 27 Anion Gap (0 - 20) 8 BUN (7 - 18 mg/dL) 12 Creatinine (0.6 - 1.3 mg/dL) 1.0 Glomerular Filtr Rate (110 - 120) 65.5 L Glucose (70 - 110 mg/dL) 98 Calcium (8.0 - 10.5 mg/dL) 9.7 Total Bilirubin (0.0 - 1.0 mg/dL) 0.70 AST (15 - 37 IUnit/L) 26 ALT (30 - 65 IUnit/L) 21 L Total Alk Phosphatase (20 - 125 IUnit/L) 100 Total Protein (6.4 - 8.2 g/dL) 7.9 Albumin (3.4 - 5.0 g/dL) 4.40 Serum , Qual (NEGATIVE) SERUM NEGATIVE Hematology WBC (4.5 - 11.0 x10 3/uL) 9.79 RBC (3.54 - 5.02 x10 6/uL) 4.48 Hgb (11.0 - 15.0 g/dL) 12.1 Hct (33.0 - 45.0 %) 39.0 MCV (81.0 - 99.0 fL) 87.1 MCH (27.0 - 33.0 pg) 27.0 MCHC (33.0 - 37.0 g/dL) 31.0 L RDW (11.5 - 14.5 %) 14.2 Plt Count (150 - 400 x10 3/uL) 455 H MPV (7.0 - 9.0 fL) 9.7 H Neut % (Auto) (56.0 - 77.0 %) 70.0 Lymph % (Auto) (14.0 - 32.0 %) 20.9 Alpine % (Auto) (4.8 - 9.0 %) 6.2 Eos % (Auto) (0.3 - 3.7 %) 2.3 Baso % (Auto) (0.0 - 2.0 %) 0.2 Neut # (Auto) (2.0 - 7.6 x10 3/uL) 6.84 Lymph # (Auto) (1.0 - 3.8 x10 3/uL) 2.05 Alpine # (Auto) (0.1 - 0.8 x10 3/uL) 0.61 Eos # (Auto) (0.0 - 0.2 x10 3/uL) 0.23 H Baso # (Auto) (0.0 - 0.2 x10 3/uL) 0.02 Abs Immat Gran (auto) (0.00 - 0.03 x10 3/uL) 0.04 H Add Manual Diff NO Immature Gran % (0.0 - 2.0 %) 0.4 Nucleated RBC % (0 - 0 %) 0.0 Nucleated RBCs # (Man) (0.0 - 0.1 x10 3/uL) 0.00 Urines Urine Color (YEL/STRAW) YELLOW Urine Appearance (CLEAR) CLEAR Urine pH (5.0 - 7.0) 8.0 H Ur Specific [place] (1.005 - 1.030) 1.013 Urine Protein (NEGATIVE) 1+ H Urine Glucose (UA) (NEGATIVE) NEGATIVE Urine Ketones (NEGATIVE) NEGATIVE Urine Blood (NEGATIVE) 3+ H Urine Nitrite (NEGATIVE) NEGATIVE Urine Bilirubin (NEGATIVE) NEGATIVE Urine Urobilinogen (0.2 - 1.0 mg/dL) 0.2 Ur Leukocyte Esterase (NEGATIVE) 1+ H Urine RBC (0 - 3 RBC/HPF) >50 H Urine WBC (0 - 3 WBC/HPF) 21-50 H Ur Squamous Epith Cells (NONE SEEN /HPF) 0-5 Urine Bacteria (NONE SEEN /HPF) TRACE Urine Mucus (NONE SEEN /LPF) 1+ Microbiology: Date/Time Procedure - Status Source Growth 12/02 1553 Urine Culture - RECD URINE Point of Care Testing Pulse Oximetry Pulse Ox % 99 On: Room air Interpretation Interpreted by me, Pulse oximetry normal Re-Evaluation MDM ED Course Medication(s) Ordered Medication(s) Ordered: Anti-Infective Agents Sig/Dimitri Start time Last Medication Dose Route Stop Time Status Admin Ceftriaxone Sodium 1,000 MG X1ED STA 12/02 1718 DC Sodium Chloride 10 ML IV 12/02 1720 Central Nervous System Agents Sig/Dimitri Start time Last Medication Dose Route Stop Time Status Admin Ketorolac 30 MG X1ED STA 12/02 1620 DC 12/02 Tromethamine IV 12/02 1621 1637 Electrolytic, Caloric, And Nuris Sig/Dimitri Start time Last Medication Dose Route Stop Time Status Admin Sodium Chloride 1,000 ML X1ED STA 12/02 1620 DC 12/02 IV 12/02 1719 1637 Patient Discharge Departure Vital Signs/Condition Vital Signs First Documented: Result Date Time Pulse Ox 99 12/02 1554 B/P 132/76 12/02 1554 B/P Mean 94 12/02 1554 O2 Delivery Room air 12/02 1554 Temp 37.1 12/02 1554 Pulse 93 12/02 1554 Resp 18 12/02 1554 Last Documented: Result Date Time Pulse Ox 99 12/02 1554 B/P 132/76 12/02 1554 B/P Mean 94 12/02 1554 O2 Delivery Room air 12/02 1554 Temp 37.1 12/02 1554 Pulse 93 12/02 1554 Resp 18 12/02 1554 All vital signs available at the time of this entry have been reviewed. Discharge/Care Plan Referrals No Primary or Family Physician (PCP/Family) Pt/Provider Handoff Handoff Note This patient's care has been transferred to and accepted by [Bean AUSTIN]. We discussed: the patient's chief complaint; labs and imaging that have been completed and those that are still pending; procedures that have been completed and those remaining to be done; any treatment provided and the patient's response to treatment; any significant change in condition; input from consultants if any; the treatment plan prior to the transfer of care. The accepting physician will follow up on all pending labs and imaging and make any necessary changes to the current impression and/or treatment plan. The accepting physician is now responsible for the patient's care and final disposition. at 1739 Addendum 1: 12/03/191818 by Violeta Luna Patient Addendum Addendum Pt left AMA; Date: 12/03/2019 Time:1816 Diagnosis: Flank Pain; Kidney stone: Acute cystitis at 1819 RPT #:[id number] END OF REPORT [facility] 2019-12-03 17:31:00 [facility] ([facility]) EMERGENCY PROVIDER REPORT REPORT#:[id number] REPORT STATUS: Signed DATE:12/03/19 TIME: 1730 PATIENT: ELDA ROLAND UNIT #: [id number] ROOM/BED: AGE: 29 SEX: F PCP PHYS: No Primary or Family Physician SERVICE AUTHOR: Violeta Luna * ALL edits or amendments must be made on the electronic/computer document * See Addendum Violeta Luna. 12/03/19 1731: HPI- Female General Confirmed Patient Yes Patient Type New patient Presentation Chief Complaint Flank pain L Hx Obtained From Patient )( Sudden in Onset? No Onset Occurred Days ago (2) Symptom Duration Since onset Progression since Onset Unchanged, Constant Context of Onset Spontaneous Caused by No trauma by history Location Flank L Quality Painful Radiation No: Does not radiate. Associated Other Pt denies other symptoms Exacerbated by Nothing Relieved by Nothing Free Text HPI Notes Free Text HPI Notes 29-year-old female with history of left kidney stone and ureteral stent (placed November 2019) presents to ER with increased left flank pain x2 days. Patient reports she completed oral antibiotics antibiotics Tuesday and pain has worsened since then. Reports she spoke with urologist who told her to come to ER. Denies fever, dysuria, nausea/vomiting, diarrhea or constipation, or any other associated Risk- Female Risk Stratification Ectopic Risk factors reviewed Review of Systems ROS Statements All systems rev neg except as marked. Focused Review of Systems Constitutional Denies: Chills, Fever. GI Denies: Constipation, Diarrhea, Nausea, Vomiting. Female Reports: Dysuria, Flank pain, Hematuria. Past Medical History - Adult Stated Complaint LEFT FLANK PAIN Allergies Coded Allergies: No Known Allergies (11/06/10) Home Medications Reported Medications PNV WITH FE FUMARATE/FA () 1 TAB PO DAILY VENLAFAXINE XR (EFFEXOR XR) 150 MG PO DAILY Smoking status for patients 13 years old or older: Never Smoker Physical Exam Vital Signs Vital Signs First Documented: Result Date Time Pulse Ox 99 12/02 1554 B/P 132/76 12/02 1554 B/P Mean 94 12/02 1554 O2 Delivery Room air 12/02 1554 Temp 37.1 12/02 1554 Pulse 93 12/02 1554 Resp 18 12/02 1554 Last Documented: Result Date Time Pulse Ox 100 12/02 1829 B/P 129/72 12/02 1829 B/P Mean 91 12/02 1829 O2 Delivery Room air 12/02 1829 Pulse 89 12/02 1829 Resp 18 12/02 1829 Temp 37.1 12/02 1554 Review of Vital Signs Reviewed Focused PE General/Const General/Const Awake, Alert, Cooperative Resp/Chest Respiratory/Chest Breath sounds NL, Breath sounds = bilat, No rales, No rhonchi, No wheezing Cardiovascular Cardiovascular Heart rate NL, Regular rhythm, Heart sounds NL Abdomen/GI Abdomen/GI Soft, Non-tender, No guarding, No rebound, BS normoactive, No distention Text/Dict Notes Left flank/CVA tenderness upon palpation MS Back Back Inspection NL, No midline vertebral tend, No paraspinal tenderness Text/Dict Notes Left flank/left CVA tenderness on palpation Skin Skin Warm, Dry, Intact Genitourinary General Exam deferred Interpretation Diagnostics Lab Results Interpretation Results Laboratory Tests 12/03/19 1640: [Embedded Image Not Available] Laboratory Tests: 12/02 12/02 12/02 1640 1640 1553 Chemistry Sodium (134 - 147 mEq/L) 136 Potassium (3.4 - 5.0 mEq/L) 3.9 Chloride (100 - 108 mEq/L) 105 Carbon Dioxide (21 - 33 mEq/L) 27 Anion Gap (0 - 20) 8 BUN (7 - 18 mg/dL) 12 Creatinine (0.6 - 1.3 mg/dL) 1.0 Glomerular Filtr Rate (110 - 120) 65.5 L Glucose (70 - 110 mg/dL) 98 Calcium (8.0 - 10.5 mg/dL) 9.7 Total Bilirubin (0.0 - 1.0 mg/dL) 0.70 AST (15 - 37 IUnit/L) 26 ALT (30 - 65 IUnit/L) 21 L Total Alk Phosphatase (20 - 125 IUnit/L) 100 Total Protein (6.4 - 8.2 g/dL) 7.9 Albumin (3.4 - 5.0 g/dL) 4.40 Serum , Qual (NEGATIVE) SERUM NEGATIVE Hematology WBC (4.5 - 11.0 x10 3/uL) 9.79 RBC (3.54 - 5.02 x10 6/uL) 4.48 Hgb (11.0 - 15.0 g/dL) 12.1 Hct (33.0 - 45.0 %) 39.0 MCV (81.0 - 99.0 fL) 87.1 MCH (27.0 - 33.0 pg) 27.0 MCHC (33.0 - 37.0 g/dL) 31.0 L RDW (11.5 - 14.5 %) 14.2 Plt Count (150 - 400 x10 3/uL) 455 H MPV (7.0 - 9.0 fL) 9.7 H Neut % (Auto) (56.0 - 77.0 %) 70.0 Lymph % (Auto) (14.0 - 32.0 %) 20.9 Alpine % (Auto) (4.8 - 9.0 %) 6.2 Eos % (Auto) (0.3 - 3.7 %) 2.3 Baso % (Auto) (0.0 - 2.0 %) 0.2 Neut # (Auto) (2.0 - 7.6 x10 3/uL) 6.84 Lymph # (Auto) (1.0 - 3.8 x10 3/uL) 2.05 Alpine # (Auto) (0.1 - 0.8 x10 3/uL) 0.61 Eos # (Auto) (0.0 - 0.2 x10 3/uL) 0.23 H Baso # (Auto) (0.0 - 0.2 x10 3/uL) 0.02 Abs Immat Gran (auto) (0.00 - 0.03 x10 3/uL) 0.04 H Add Manual Diff NO Immature Gran % (0.0 - 2.0 %) 0.4 Nucleated RBC % (0 - 0 %) 0.0 Nucleated RBCs # (Man) (0.0 - 0.1 x10 3/uL) 0.00 Urines Urine Color (YEL/STRAW) YELLOW Urine Appearance (CLEAR) CLEAR Urine pH (5.0 - 7.0) 8.0 H Ur Specific [place] (1.005 - 1.030) 1.013 Urine Protein (NEGATIVE) 1+ H Urine Glucose (UA) (NEGATIVE) NEGATIVE Urine Ketones (NEGATIVE) NEGATIVE Urine Blood (NEGATIVE) 3+ H Urine Nitrite (NEGATIVE) NEGATIVE Urine Bilirubin (NEGATIVE) NEGATIVE Urine Urobilinogen (0.2 - 1.0 mg/dL) 0.2 Ur Leukocyte Esterase (NEGATIVE) 1+ H Urine RBC (0 - 3 RBC/HPF) >50 H Urine WBC (0 - 3 WBC/HPF) 21-50 H Ur Squamous Epith Cells (NONE SEEN /HPF) 0-5 Urine Bacteria (NONE SEEN /HPF) TRACE Urine Mucus (NONE SEEN /LPF) 1+ Microbiology: Date/Time Procedure - Status Source Growth 12/02 1553 Urine Culture - RECD URINE Recent Impressions: CAT SCAN - CT ABD PELVIS W/O CONT 12/02 1734 Report Impression - Status: SIGNED Entered: 12/03/2019 2748 IMPRESSION: 1. Bilateral nonobstructive nephrolithiasis. 2. Low position left nephroureteral stent without kink, fracture or migration. 3. Constipation with nonobstructive bowel gas pattern. 4. Broad-based 2 mm posterior disc bulges at T11-T12 and L5-S1. ____ CT imaging performed at this location utilizes radiation dose optimization techniques which include one or more of the following: -Automated exposure control -Adjustment of the mA and/or kV according to patient size -Use of iterative reconstruction technique SL: ER-H Impression By: [email or web address] - Andrea Amor M.D. Point of Care Testing Pulse Oximetry Pulse Ox % 99 On: Room air Interpretation Interpreted by me, Pulse oximetry normal Re-Evaluation MDM ED Course Medication(s) Ordered Medication(s) Ordered: Anti-Infective Agents Sig/Dimitri Start time Last Medication Dose Route Stop Time Status Admin Ceftriaxone Sodium 1,000 MG X1ED STA 12/02 1718 DC 12/02 Sodium Chloride 10 ML IV 12/02 1720 1746 Central Nervous System Agents Sig/Dimitri Start time Last Medication Dose Route Stop Time Status Admin Ketorolac 30 MG X1ED STA 12/02 1620 DC 12/02 Tromethamine IV 12/02 1621 1637 Electrolytic, Caloric, And Nuris Sig/Dimitri Start time Last Medication Dose Route Stop Time Status Admin Sodium Chloride 1,000 ML X1ED STA 12/02 1620 DC 12/02 IV 12/02 1719 1637 Patient Discharge Departure Vital Signs/Condition Vital Signs First Documented: Result Date Time Pulse Ox 99 12/02 1554 B/P 132/76 12/02 1554 B/P Mean 94 12/02 1554 O2 Delivery Room air 12/02 1554 Temp 37.1 12/02 1554 Pulse 93 12/02 1554 Resp 18 12/02 1554 Last Documented: Result Date Time Pulse Ox 100 12/02 1829 B/P 129/72 12/02 1829 B/P Mean 91 12/02 1829 O2 Delivery Room air 12/02 1829 Pulse 89 12/02 1829 Resp 18 12/02 1829 Temp 37.1 12/02 1554 All vital signs available at the time of this entry have been reviewed. Discharge/Care Plan Referrals No Primary or Family Physician (PCP/Family) Pt/Provider Handoff Handoff Note This patient's care has been transferred to and accepted by [Bean ASUTIN]. We discussed: the patient's chief complaint; labs and imaging that have been completed and those that are still pending; procedures that have been completed and those remaining to be done; any treatment provided and the patient's response to treatment; any significant change in condition; input from consultants if any; the treatment plan prior to the transfer of care. The accepting physician will follow up on all pending labs and imaging and make any necessary changes to the current impression and/or treatment plan. The accepting physician is now responsible for the patient's care and final disposition. Christelle Millan 12/03/192130: HPI- Female General Initial Greet Date/Time 12/03/19 1614 Re-Evaluation MDM Free Text MDM Notes Free Text MDM Notes assigned in error at 1739 at 2132 Addendum 1: 12/03/191818 by Violeta Luna Patient Addendum Addendum Pt left AMA; Date: 12/03/2019 Time:1816 Diagnosis: Flank Pain; Kidney stone: Acute cystitis at 1819 RPT #:[id number] END OF REPORT [facility] 2019-12-03 17:31:00 [facility] ([facility]) EMERGENCY PROVIDER REPORT REPORT#:[id number] REPORT STATUS: Signed DATE:12/03/19 TIME: 1730 PATIENT: ELDA ROLAND UNIT #: [id number] ROOM/BED: AGE: 29 SEX: F PCP PHYS: No Primary or Family Physician SERVICE AUTHOR: Violeta Luna * ALL edits or amendments must be made on the electronic/computer document * See Addendum Violeta Luna. 12/03/19 173: HPI- Female General Confirmed Patient Yes Patient Type New patient Presentation Chief Complaint Flank pain L Hx Obtained From Patient )( Sudden in Onset? No Onset Occurred Days ago (2) Symptom Duration Since onset Progression since Onset Unchanged, Constant Context of Onset Spontaneous Caused by No trauma by history Location Flank L Quality Painful Radiation No: Does not radiate. Associated Other Pt denies other symptoms Exacerbated by Nothing Relieved by Nothing Free Text HPI Notes Free Text HPI Notes 29-year-old female with history of left kidney stone and ureteral stent (placed November 2019) presents to ER with increased left flank pain x2 days. Patient reports she completed oral antibiotics antibiotics Tuesday and pain has worsened since then. Reports she spoke with urologist who told her to come to ER. Denies fever, dysuria, nausea/vomiting, diarrhea or constipation, or any other associated Risk- Female Risk Stratification Ectopic Risk factors reviewed Review of Systems ROS Statements All systems rev neg except as marked. Focused Review of Systems Constitutional Denies: Chills, Fever. GI Denies: Constipation, Diarrhea, Nausea, Vomiting. Female Reports: Dysuria, Flank pain, Hematuria. Past Medical History - Adult Stated Complaint LEFT FLANK PAIN Allergies Coded Allergies: No Known Allergies (11/06/10) Home Medications Reported Medications PNV WITH FE FUMARATE/FA () 1 TAB PO DAILY VENLAFAXINE XR (EFFEXOR XR) 150 MG PO DAILY Smoking status for patients 13 years old or older: Never Smoker Physical Exam Vital Signs Vital Signs First Documented: Result Date Time Pulse Ox 99 12/02 1554 B/P 132/76 12/02 1554 B/P Mean 94 12/02 1554 O2 Delivery Room air 12/02 1554 Temp 37.1 12/02 1554 Pulse 93 12/02 1554 Resp 18 12/02 1554 Last Documented: Result Date Time Pulse Ox 100 12/02 1829 B/P 129/72 12/02 1829 B/P Mean 91 12/02 1829 O2 Delivery Room air 12/02 1829 Pulse 89 12/02 1829 Resp 18 12/02 1829 Temp 37.1 12/02 1554 Review of Vital Signs Reviewed Focused PE General/Const General/Const Awake, Alert, Cooperative Resp/Chest Respiratory/Chest Breath sounds NL, Breath sounds = bilat, No rales, No rhonchi, No wheezing Cardiovascular Cardiovascular Heart rate NL, Regular rhythm, Heart sounds NL Abdomen/GI Abdomen/GI Soft, Non-tender, No guarding, No rebound, BS normoactive, No distention Text/Dict Notes Left flank/CVA tenderness upon palpation MS Back Back Inspection NL, No midline vertebral tend, No paraspinal tenderness Text/Dict Notes Left flank/left CVA tenderness on palpation Skin Skin Warm, Dry, Intact Genitourinary General Exam deferred Interpretation Diagnostics Lab Results Interpretation Results Laboratory Tests 12/03/19 1640: [Embedded Image Not Available] Laboratory Tests: 12/02 12/02 12/02 1640 1640 1553 Chemistry Sodium (134 - 147 mEq/L) 136 Potassium (3.4 - 5.0 mEq/L) 3.9 Chloride (100 - 108 mEq/L) 105 Carbon Dioxide (21 - 33 mEq/L) 27 Anion Gap (0 - 20) 8 BUN (7 - 18 mg/dL) 12 Creatinine (0.6 - 1.3 mg/dL) 1.0 Glomerular Filtr Rate (110 - 120) 65.5 L Glucose (70 - 110 mg/dL) 98 Calcium (8.0 - 10.5 mg/dL) 9.7 Total Bilirubin (0.0 - 1.0 mg/dL) 0.70 AST (15 - 37 IUnit/L) 26 ALT (30 - 65 IUnit/L) 21 L Total Alk Phosphatase (20 - 125 IUnit/L) 100 Total Protein (6.4 - 8.2 g/dL) 7.9 Albumin (3.4 - 5.0 g/dL) 4.40 Serum , Qual (NEGATIVE) SERUM NEGATIVE Hematology WBC (4.5 - 11.0 x10 3/uL) 9.79 RBC (3.54 - 5.02 x10 6/uL) 4.48 Hgb (11.0 - 15.0 g/dL) 12.1 Hct (33.0 - 45.0 %) 39.0 MCV (81.0 - 99.0 fL) 87.1 MCH (27.0 - 33.0 pg) 27.0 MCHC (33.0 - 37.0 g/dL) 31.0 L RDW (11.5 - 14.5 %) 14.2 Plt Count (150 - 400 x10 3/uL) 455 H MPV (7.0 - 9.0 fL) 9.7 H Neut % (Auto) (56.0 - 77.0 %) 70.0 Lymph % (Auto) (14.0 - 32.0 %) 20.9 Alpine % (Auto) (4.8 - 9.0 %) 6.2 Eos % (Auto) (0.3 - 3.7 %) 2.3 Baso % (Auto) (0.0 - 2.0 %) 0.2 Neut # (Auto) (2.0 - 7.6 x10 3/uL) 6.84 Lymph # (Auto) (1.0 - 3.8 x10 3/uL) 2.05 Alpine # (Auto) (0.1 - 0.8 x10 3/uL) 0.61 Eos # (Auto) (0.0 - 0.2 x10 3/uL) 0.23 H Baso # (Auto) (0.0 - 0.2 x10 3/uL) 0.02 Abs Immat Gran (auto) (0.00 - 0.03 x10 3/uL) 0.04 H Add Manual Diff NO Immature Gran % (0.0 - 2.0 %) 0.4 Nucleated RBC % (0 - 0 %) 0.0 Nucleated RBCs # (Man) (0.0 - 0.1 x10 3/uL) 0.00 Urines Urine Color (YEL/STRAW) YELLOW Urine Appearance (CLEAR) CLEAR Urine pH (5.0 - 7.0) 8.0 H Ur Specific [place] (1.005 - 1.030) 1.013 Urine Protein (NEGATIVE) 1+ H Urine Glucose (UA) (NEGATIVE) NEGATIVE Urine Ketones (NEGATIVE) NEGATIVE Urine Blood (NEGATIVE) 3+ H Urine Nitrite (NEGATIVE) NEGATIVE Urine Bilirubin (NEGATIVE) NEGATIVE Urine Urobilinogen (0.2 - 1.0 mg/dL) 0.2 Ur Leukocyte Esterase (NEGATIVE) 1+ H Urine RBC (0 - 3 RBC/HPF) >50 H Urine WBC (0 - 3 WBC/HPF) 21-50 H Ur Squamous Epith Cells (NONE SEEN /HPF) 0-5 Urine Bacteria (NONE SEEN /HPF) TRACE Urine Mucus (NONE SEEN /LPF) 1+ Microbiology: Date/Time Procedure - Status Source Growth 12/02 1553 Urine Culture - COMP URINE Recent Impressions: CAT SCAN - CT ABD PELVIS W/O CONT 12/02 2354 Report Impression - Status: SIGNED Entered: 12/03/2019 1958 IMPRESSION: 1. Bilateral nonobstructive nephrolithiasis. 2. Low position left nephroureteral stent without kink, fracture or migration. 3. Constipation with nonobstructive bowel gas pattern. 4. Broad-based 2 mm posterior disc bulges at T11-T12 and L5-S1. ____ CT imaging performed at this location utilizes radiation dose optimization techniques which include one or more of the following: -Automated exposure control -Adjustment of the mA and/or kV according to patient size -Use of iterative reconstruction technique SL: ER-H Impression By: [email or web address] - Andrea Amor M.D. Point of Care Testing Pulse Oximetry Pulse Ox % 99 On: Room air Interpretation Interpreted by me, Pulse oximetry normal Re-Evaluation MDM ED Course Medication(s) Ordered Medication(s) Ordered: Anti-Infective Agents Sig/Dimitri Start time Last Medication Dose Route Stop Time Status Admin Ceftriaxone Sodium 1,000 MG X1ED STA 12/02 1718 DC 12/02 Sodium Chloride 10 ML IV 12/02 1720 1746 Central Nervous System Agents Sig/Dimitri Start time Last Medication Dose Route Stop Time Status Admin Ketorolac 30 MG X1ED STA 12/02 1620 DC 12/02 Tromethamine IV 12/02 1621 1637 Electrolytic, Caloric, And Nuris Sig/Dimitri Start time Last Medication Dose Route Stop Time Status Admin Sodium Chloride 1,000 ML X1ED STA 12/02 1620 DC 12/02 IV 12/02 1719 1637 Patient Discharge Departure Vital Signs/Condition Vital Signs First Documented: Result Date Time Pulse Ox 99 12/02 1554 B/P 132/76 12/02 1554 B/P Mean 94 12/02 1554 O2 Delivery Room air 12/02 1554 Temp 37.1 12/02 1554 Pulse 93 12/02 1554 Resp 18 12/02 1554 Last Documented: Result Date Time Pulse Ox 100 12/02 1829 B/P 129/72 12/02 1829 B/P Mean 91 12/02 1829 O2 Delivery Room air 12/02 1829 Pulse 89 12/02 1829 Resp 18 12/02 1829 Temp 37.1 12/02 1554 All vital signs available at the time of this entry have been reviewed. Discharge/Care Plan Referrals No Primary or Family Physician (PCP/Family) Pt/Provider Handoff Handoff Note This patient's care has been transferred to and accepted by [Bean AUSTIN]. We discussed: the patient's chief complaint; labs and imaging that have been completed and those that are still pending; procedures that have been completed and those remaining to be done; any treatment provided and the patient's response to treatment; any significant change in condition; input from consultants if any; the treatment plan prior to the transfer of care. The accepting physician will follow up on all pending labs and imaging and make any necessary changes to the current impression and/or treatment plan. The accepting physician is now responsible for the patient's care and final disposition. Christelle Millan 12/03/192130: Re-Evaluation MDM Free Text MDM Notes Free Text MDM Notes assigned in error Jay Cornelius 12/09/19 1623: HPI- Female General Initial Greet Date/Time 12/03/19 1614 Patient Discharge Departure Clinical Impression Clinical Impression Primary Impression: Acute cystitis Secondary Impressions: Flank pain, Kidney stone Supervising Physician Note MidLv Saw Pt Alone I have reviewed the PA/BOAT PULLER's note and plan of care. I was available for consultation as needed at all times during the patient's visit in the emergency department. I agree with the clinical impression, plan and disposition. at 1739 at 2132 at 1624 Addendum 1: 12/03/191818 by Violeta Luna Patient Addendum Addendum Pt left AMA; Date: 12/03/2019 Time:1816 Diagnosis: Flank Pain; Kidney stone: Acute cystitis at 1819 RPT #:[id number] END OF REPORT [facility]"
[2024-10-20 11:39] LABS: Absolute Lymphocytes (CBC) 1.3 K/uL (0.7-4.9); Hematocrit 38.5 % (36.0-45.0); Hemoglobin 12.3 g/dL (12.0-15.0); MCH 25.0 pg (27.0-35.0); MCHC 31.8 g/dL (32.0-36.0); MCV 78.7 fL (80-100); MPV 8.0 fL (7.6-11.3); Nucleated RBC Absolute Count 0.0 (0-0); Nucleated Red Blood Cells % 0.0 % (0-0); RBC Red Blood Cell Count 4.90 M/uL (3.86-4.86); White Blood Count 6.70 thou/uL (4.3-10.9)
[2024-10-20 11:43] LABS: PT Prothrombin Time 13.5 SECONDS (10-13.0); PTT, Activated Partial Thromb 35.3 SECONDS (27.2-37.4); Protime INR 1.2
[2024-10-20] MEDS ORDERED: METOCLOPRAMIDE 10 MG/2mL INJ ONE (11:46)
[2024-10-20] MEDS ORDERED: KETOROLAC 30 MG/ML INJ ONE (11:47)
[2024-10-20] MEDS ORDERED: DIPHENHYDRAMINE 50 MG/ML VIAL ONE (11:47)
[2024-10-20] MEDS ORDERED: NA CHLORIDE 0.9% 0 ML ONE (11:47)
[2024-10-20] MEDS ORDERED: NA CHLORIDE 0.9% 1,000 ML ONE (11:47)
[2024-10-20] MEDS ORDERED: NA CHLORIDE 0.9% 50 ML ONE (11:48)
[2024-10-20 12:00] LABS: ALT/SGPT 22 U/L (13-56); AST/SGOT 16 U/L (15-37); Albumin 3.8 g/dL (3.4-5.0); Albumin/Globulin Ratio 0.9 (1.1-1.8); Alkaline Phosphatase 88 U/L (45-117); Anion Gap 8.6 mEq/L (5.0-15.0); BUN Blood Urea Nitrogen 8 mg/dL (7-18); Bilirubin Indirect, Calculated 0.9 mg/dL (0.2-0.8); Globulin 4.2 g/dL (2.3-3.5); Glucose Level 90 mg/dL (74-106); Influenza A Ag Negative; Influenza B Ag Negative; Magnesium 2.2 mg/dL (1.6-2.4); Potassium 3.6 mEq/L (3.5-5.1); SARS-CoV-2 Antigen Rapid Res Negative (Negative); Thyroid Stimulating Hormone 1.390 uIU/mL (0.358-3.740)
[2024-10-20 12:13] LABS: Troponin High Sensitivity < 3.0 pg/mL (<58.9)
--- NOTE | 2024-10-20 12:33 | RAD REPORT ---
EXAMINATION: CT HEAD WITHOUT CONTRAST CT CERVICAL SPINE WITHOUT CONTRAST CLINICAL INDICATION: Dizziness. Head and neck pain TECHNIQUE: Axial CT images from the skull base to the vertex without intravenous contrast. Axial CT i mages through the cervical spine were obtained without intravenous contrast. Sagittal and coronal reformatted images were created from the data set. Coronal and sagittal reformatted images were creat ed from the data set. One or more of the following dose reduction techniques were used: Automated exposure control, adjustment of the mA and/or kV according to patient size, and/or iterative reconstr uction. Unless otherwise specified, incidental findings do not require dedicated imaging follow-up. [id number]. Comparison: none FINDINGS: An intracranial bleed is not seen. Ventricles are normal in caliber. No significant hypodensity within the brain No extra-axial fluid collection. No fluid within the sinuses/mastoids No fracture or dislocation is seen involving the cervical spine. No high-grade central/foraminal stenosis noted. IMPRESSION: No acute intracranial abnormality noted A cervical fracture is not seen. No high-grade central/foraminal stenosis noted If the patient continues to have symptoms to suggest acute [employer]/spinal pathology then MRI would be rec ommended
--- NOTE | 2024-10-20 12:34 | RAD REPORT ---
Procedure: Chest Single View HISTORY: Chest pain COMPARISON: 2017 FINDINGS: The lungs appear clear of acute infiltrate. No significant pleural effusion noted. The heart is normal size. IMPRESSION: No acute abnormality is displayed.
--- NOTE | 2024-10-20 12:41 | EDPHYS ---
Physician Documentation [facility] Name: Jesika Gilman Age: 34 yrs Sex: Female : 1990 Arrival Date: 10/20/2024 Time: 10:44 Bed 12 Private MD: ED Physician Anthony Junior HPI: 10/20 11:56 This 34 yrs old Female presents to ER via Ambulatory with complaints of sb4 Dizziness, Headache. 11:56 Patient reports nausea, lightheadedness, and pressure in her head that began yesterday. sb4 Denies any pain per se but feels in her head as though she had a tight ponytail or her glasses were too tight on her face. States that she gets this sensation in her head intermittently like when you stand up too fast. Denies any prior episodes of this. Denies any head injury. Does report intermittent blurry vision as well. Denies any URI symptoms. 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 - Infectious Disease History:: Denies. - Social history:: Smoking status: Patient/guardian denies using tobacco. ROS: 11:56 Constitutional: Negative for fever, chills, and weight loss, sb4 11:56 Abdomen/GI: Positive for nausea, 11:56 Neuro: Positive for dizziness, headache, per HPI, 11:56 All other systems are negative, Exam: 11:56 Head/Face: Normocephalic, atraumatic. Eyes: Extra-ocular motions intact. Periorbital sb4 areas with no swelling, redness, or edema. ENT: Mucous membranes moist. Cardiovascular: Regular rate and rhythm with a normal S1 and S2. Respiratory: No increased work of breathing, no retractions or nasal flaring. Abdomen/GI: Soft, non-tender, no distension. Skin: Warm, dry with normal turgor. Normal color with no rashes, no lesions, and no evidence of cellulitis. MS/ Extremity: Pulses equal, no cyanosis. Neurovascular intact. Full, normal range of motion. Neuro: Awake and alert, GCS 15, oriented to person, place, time, and situation. Motor strength 5/5 in all extremities. Sensory grossly intact. 11:56 Constitutional: The patient appears alert, awake, uncomfortable, Vital Signs: 10:56 BP 133 / 83; Pulse 95; Resp 18; Temp 98.5(O); Pulse Ox 100% on R/A; Weight 93.44 kg; ar8 Height 5 ft. 6 in. ; Pain 6/10; 11:42 BP 127 / 79 Supine; ts3 11:42 BP 124 / 85 Sitting; ts3 11:42 BP 113 / 82 Standing; ts3 10:56 Body Mass Index 33.25 (93.44 kg, 167.64 cm) ar8 10:56 Pain Scale: Adult ar8 MDM: 10:50 Medical Screening Exam initiated sb4 11:59 Differential diagnosis: cardiac arrhythmia, hypovolemia, idiopathic dizziness, sb4 , vertigo, migraine. 12:43 Data reviewed: vital signs, nurses notes, lab test result(s), EKG, radiologic studies, sb4 and as a result, I will discharge patient. Counseling: I had a detailed discussion with the patient and/or guardian regarding the historical points, exam findings, and any diagnostic results supporting the discharge/admit diagnosis, lab results, radiology results, the need for outpatient follow up, a neurologist, to return to the emergency department if symptoms worsen or persist or if there are any questions or concerns that arise at home. 12:43 Special discussion: I discussed with the patient/guardian in detail that at this point sb4 there is no indication for admission to the hospital. It is understood, however, that if the symptoms persist or worsen the patient needs to return immediately for re-evaluation. 10/20 11:15 Order name: Basic Metabolic Panel; Complete Time: 12:14 sb4 10/20 11:15 Order name: CBC with Diff sb4 10/20 11:15 Order name: Hepatic Function; Complete Time: 12:14 sb4 10/20 11:15 Order name: Magnesium; Complete Time: 12:14 sb4 10/20 11:15 Order name: Protime (+inr); Complete Time: 11:44 sb4 10/20 11:15 Order name: Ptt, Activated; Complete Time: 11:44 sb4 10/20 11:15 Order name: Troponin High Sensitivity; Complete Time: 12:14 sb4 10/20 11:15 Order name: TSH; Complete Time: 12:14 sb4 10/20 11:15 Order name: COVID-19 Ag + Flu A+B Ag; Complete Time: 12:02 sb4 10/20 11:16 Order name: Test, Serum; Complete Time: 12:14 sb4 10/20 11:15 Order name: CT Head C Spine; Complete Time: 12:37 sb4 10/20 11:15 Order name: Chest Single View XRAY; Complete Time: 12:37 sb4 10/20 11:15 Order name: Cardiac monitoring; Complete Time: 11:41 sb4 10/20 11:15 Order name: EKG - Nurse/Tech; Complete Time: 11:41 sb4 10/20 11:15 Order name: IV Saline Lock; Complete Time: 11:41 sb4 10/20 11:15 Order name: Labs collected and sent; Complete Time: 11:41 sb4 10/20 11:15 Order name: O2 Per Protocol; Complete Time: 11:42 sb4 10/20 11:15 Order name: O2 Sat Monitoring; Complete Time: 11:41 sb4 10/20 11:15 Order name: Orthostatics; Complete Time: 11:41 sb4 EC:45 Rate is 81 beats/min. Rhythm is regular, Normal Sinus Rhythm. IL interval is normal at sb4 128 msec. QRS interval is normal at 88 msec. QT interval is normal at 382 msec. No Q waves. T waves are Normal. No ST changes noted. Clinical impression: Normal ECG. Interpreted by me. Reviewed by me. Administered Medications: 12:21 Drug: NS 0.9% IV 1000 ml IV at 1 bolus Per protocol; to be given as a bolus over 60 ap3 minutes Route: IV; Rate: 1 bolus; Site: left antecubital; 13:07 Follow up: IV Status: Completed infusion; IV Intake: 1000ml ss 12:21 Drug: metoCLOPramide IVP 10 mg IVP once; over 1 to 2 minutes Route: IVP; Site: left ap3 antecubital; 13:07 Follow up: Response: No adverse reaction; Marked relief of symptoms ss 12:21 Drug: diphenhydrAMINE IVP 25 mg IVP once Route: IVP; Site: left antecubital; ap3 13:08 Follow up: Response: No adverse reaction; Marked relief of symptoms ss 12:21 Drug: Ketorolac IVP 15 mg IVP once Route: IVP; Site: left antecubital; ap3 13:07 Follow up: Response: No adverse reaction ss Disposition Summary: 10/20/24 12:41 Discharge Ordered Notes: Location: Home sb4 Problem: new sb4 Symptoms: are unchanged sb4 Condition: Stable sb4 Diagnosis - Dizziness and giddiness sb4 - Tension-type headache sb4 Followup: sb4 - With: John Light MD - When: As needed - Reason: Recheck today's complaints, Re-evaluation by your physician Discharge Instructions: - Discharge Summary Sheet sb4 - Tension Headache, Adult, [id number] sb4 - Dizziness, [id number] sb4 Forms: - Work release form sb4 - Patient Portal Instructions sb4 - Leadership Thank You Letter sb4 Prescriptions: - ketorolac 10 mg Oral tablet - take 1 tablet ORAL route every 6 hours maximum total duration of 5 days from sb4 all oral, intranasal, or parenteral formulations; 10 tablet; Refills: 0, Product Selection Permitted - Meclizine 25 mg Oral Tablet - take 1 tablet ORAL route every 8 hours As needed; 30 tablet; Refills: 0, sb4 Product Selection Permitted Signatures: Dispatcher [employer] Martha Schmidt RN RN ap3 Karyna Goodrich PA-C PAIndigo sb4 Fer Rose RN RN ar8 Enedelia Kaur RN ss Corrections: (The following items were deleted from the chart) 11:16 11:16 BASIC METABOLIC PANEL+C.LAB.BRZ ordered. EDMS EDMS 11:16 11:16 CBC+H.LAB.BRZ ordered. EDMS EDMS 11:16 11:16 HEPATIC FUNCTION+C.LAB.BRZ ordered. EDMS EDMS 11:16 11:16 MAGNESIUM+C.LAB.BRZ ordered. EDMS EDMS 11:16 11:16 PROTIME (+INR)+COAG.LAB.BRZ ordered. EDMS EDMS 11:16 11:16 PTT, ACTIVATED+COAG.LAB.BRZ ordered. EDMS EDMS : 11:16 Troponin High Sensitivity+C.LAB.BRZ ordered. EDMS EDMS 11:16 THYROID STIMULAT HORMONE+C.LAB.BRZ ordered. EDMS EDMS 11:16 COVID-19 Ag + Flu A+B Ag+I.LAB.BRZ ordered. EDMS EDMS : 11:16 Head C Spine MPR Wo Con+CT.RAD.BRZ ordered. EDMS EDMS : 11:16 Chest Single View+RAD.RAD.BRZ ordered. EDMS EDMS : 11:16 TEST, SERUM+SC.LAB.BRZ ordered. EDMS EDMS
--- NOTE | 2024-10-20 12:41 | ER ---
Nurse's Notes [facility] Name: Jesika Gilman Age: 34 yrs Sex: Female : 1990 Arrival Date: 10/20/2024 Time: 10:44 Bed 12 Private MD: Diagnosis: Dizziness and giddiness;Tension-type headache Presentation: 10/20 10:56 Chief complaint: Patient states: C/O head pressure, nausea, dizziness that began ar8 yesterday night. Coronavirus screen: At this time, the client does not indicate any symptoms associated with coronavirus-19. Ebola Screen: No symptoms or risks identified at this time. Initial Sepsis Screen: Does the patient meet any 2 criteria? No. Patient's initial sepsis screen is negative. Does the patient have a suspected source of infection? No. Patient's initial sepsis screen is negative. Risk Assessment: Do you want to hurt yourself or someone else? Patient reports no desire to harm self or others. Onset of symptoms was October 19, 2024. 10:56 Method Of Arrival: Ambulatory ar8 10:56 Acuity: DIDIER 3 ar8 Triage Assessment: 10:59 Headache History: Other head pressure that is different from past BATES's. General: ar8 Appears uncomfortable, Behavior is calm, cooperative, appropriate for age. Pain: Pain currently is 6 out of 10 on a pain scale. 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 - Infectious Disease History:: Denies. - Social history:: Smoking status: Patient/guardian denies using tobacco. Screenin:05 Abuse screen: Denies threats or abuse. Denies injuries from another. Nutritional ss screening: No deficits noted. Tuberculosis screening: Never had TB. Assessment: 13:05 General: Appears in no apparent distress. comfortable. Neuro: Level of Consciousness is ss awake, alert, obeys commands, Oriented to person, place, time, situation. Cardiovascular: Pulses are palpable in right radial artery and left radial artery. Respiratory: Airway is patent Respiratory effort is even, unlabored, Respiratory pattern is regular, symmetrical. Derm: Skin is intact, is healthy with good turgor, Skin is dry, Skin is pink, warm \T\ dry. normal. Vital Signs: 10:56 BP 133 / 83; Pulse 95; Resp 18; Temp 98.5(O); Pulse Ox 100% on R/A; Weight 93.44 kg; ar8 Height 5 ft. 6 in. ; Pain 6/10; 11:42 BP 127 / 79 Supine; ts3 11:42 BP 124 / 85 Sitting; ts3 11:42 BP 113 / 82 Standing; ts3 10:56 Body Mass Index 33.25 (93.44 kg, 167.64 cm) ar8 10:56 Pain Scale: Adult ar8 ED Course: 10:45 Patient arrived in ED. ts1 10:47 Karyna Goodrich PA-C is PHCP. sb4 10:47 Anthony Junior MD is Attending Physician. sb4 10:59 Triage completed. ar8 11:41 Inserted saline lock: 20 gauge in left antecubital area, using aseptic technique. Blood ts3 collected. Flushed with 10 mL NS. 11:41 Initial lab(s) drawn, by sleep lab technologist, sent to lab. ts3 11:41 EKG done, by production technician. ts3 11:58 CT Head C Spine In Process Unspecified. EDMS 12:11 Chest Single View XRAY In Process Unspecified. EDMS 12:41 John Light MD is Referral Physician. sb4 13:05 No provider procedures requiring assistance completed. IV discontinued, intact, ss bleeding controlled, No redness/swelling at site. Pressure dressing applied. 13:05 Patient has correct armband on for positive identification. Bed in low position. ss Administered Medications: 12:21 Drug: NS 0.9% IV 1000 ml IV at 1 bolus Per protocol; to be given as a bolus over 60 ap3 minutes Route: IV; Rate: 1 bolus; Site: left antecubital; 13:07 Follow up: IV Status: Completed infusion; IV Intake: 1000ml ss 12:21 Drug: metoCLOPramide IVP 10 mg IVP once; over 1 to 2 minutes Route: IVP; Site: left ap3 antecubital; 13:07 Follow up: Response: No adverse reaction; Marked relief of symptoms ss 12:21 Drug: diphenhydrAMINE IVP 25 mg IVP once Route: IVP; Site: left antecubital; ap3 13:08 Follow up: Response: No adverse reaction; Marked relief of symptoms ss 12:21 Drug: Ketorolac IVP 15 mg IVP once Route: IVP; Site: left antecubital; ap3 13:07 Follow up: Response: No adverse reaction ss Medication: 13:05 VIS not applicable for this client. ss Intake: 13:07 IV: 1000ml; Total: 1000ml. ss Outcome: 12:41 Discharge ordered by . sb4 13:05 Discharged to home ambulatory, ss 13:05 Condition: good 13:05 Discharge instructions given to patient, Instructed on discharge instructions, follow up and referral plans. medication usage, Demonstrated understanding of instructions, follow-up care, medications, Prescriptions given X 2, 13:07 Patient left the ED. ss Signatures: Dispatcher [employer] EDMS Enedelia Kaur, RN RN Martha Lancaster RN RN [id number] Karyna Goodrich, PARajaniC PARajaniC [id number] Tere Almanza PAS PAS ts1 Nikki Razo3 Fer Rose, RN RN ar8
[2024-10-20 13:33] LABS: Anisocytosis 1+; Blood Morphology Comment NOTED (NOT SEEN); Microcytosis 1+; White Blood Cell Scan OK (OK)
== END 2024-10-20 13:07 | disposition home or self-care (01) ==
LOC: ER 10:44
DX: R42 Dizziness and giddiness (principal); G44.209 Tension-type headache, unspecified, not intractable
CPT/HCPCS: 36415; 70450; 71045; 72125; 80048; 80076; 83735; 84443; 84484; 84703; 85025; 85610; 85730; 87428; 93005; 96361; 96374; 96375; 99284; J1200; J2765; J7030